=== PATIENT | male | born 1945 | race Caucasian/White ===

== ENCOUNTER 2019-11-30 07:32 | Outpatient (CLI) | payer MEDICARE, SELFPAY ==
--- NOTE | ~2019-11-30 | CT_ITS ---
EXAMINATION: CT chest wo con DATE: 11/30/2019 07:55 INDICATION: Adenocarcinoma right lower lobe. Follow-up. TECHNIQUE: Computed tomography (CT) of the chest was performed without intravenous contrast. The dose -length product was 310.74 mGy-cm. Automated exposure control and iterative reconstruction technique were employed. COMPARISON: CT dated 05/13/2017 and chest dated 12/30/2018 FINDINGS: There is asymmetry of the jugular veins which is chronic. There is atherosclerosis of the a anastasia and coronary arteries. Heart size is normal. There are calcified granulomas in the spleen. No th oracic lymphadenopathy. No significant pleural or pericardial effusion. There are surgical changes of partial right lower lung resection. Moderate emphysema. Calcified granuloma right lower lobe. There are reticulonodular densities of the right upper lobe anteriorly. There are calcified granulomas of t he left lung. Mildly elevated left diaphragm. Left lower lobe atelectasis. Small hiatal hernia. IMPRESSION: 1. No evidence for residual/recurrent malignancy. Surgical changes consistent with partial right lung resection. 2: Reticulonodular densities right upper lobe anteriorly, most likely infectious/inflammatory. 3: Moderate emphysema. Reviewed, dictated and finalized at location A. IMPRESSION: 1. No evidence for residual/recurrent malignancy. Surgical changes consistent w ith partial right lung resection. 2: Reticulonodular densities right upper lobe anteriorly, most likely infectiou s/inflammatory. 3: Moderate emphysema.
== END 2019-11-30 07:33 | disposition home or self-care (01) ==
LOC: CHSIMG 07:35
PROVIDERS: PCP Internal Medicine
DX: C34.31 Malignant neoplasm of lower lobe, right bronchus or lung (principal)
CPT/HCPCS: 71250

== ENCOUNTER 2020-02-01 07:25 | Outpatient (CLI) | payer MEDICARE, SELFPAY ==
[2020-02-01 07:40] LABS: Hematocrit 31.7 % (37.0-46.0); Hemoglobin 10.2 g/dL (12.4-15.3); Mean Corpuscular HGB Conc 32.2 g/dL (32.0-36.0); Mean Corpuscular Hemoglobin 23.9 pg (27.0-31.0); Mean Corpuscular Volume 74.4 fL (78.0-102.0); Mean Platelet Volume 9.6 fl (8.7-11.0); Platelet Count Result 281 K/mm3 (150-420); Red Blood Count 4.26 M/mm3 (4.70-6.10); Red Cell Distribution Width 20.4 % (11.6-14.4); White Blood Count 3.9 K/mm3 (4.8-10.8)
[2020-02-01 07:41] LABS: Add Urine Microscopic? NO; Appearance Urine Clear (Clear); Bilirubin Urine Negative (Negative); Blood Urine Negative (Negative); Color Urine Yellow (Yellow); Glucose Urine UA Negative (Negative); Ketones Urine Negative (Negative); Leukocyte Esterase Ur Negative (Negative); Nitrate Urine Negative (Negative); Protein Urine Negative (Negative); Specific Grav Ur <= 1.005 (1.010-1.020); Urobilinogen Urine 0.2 mg/dL (0.2-1.0)
[2020-02-01 08:00] LABS: Hemoglobin A1C 6.1 % (<5.7)
[2020-02-01 08:18] LABS: Band Neutrophils Percent 0 % (0-6); Basophils Percent Manual 0 % (0-1); Eosinophils Absolute Manual 0.07 K/mm3 (0.02-0.5); Eosinophils Percent Manual 2 % (1-6); Lymphocytes Percent Manual 18 % (18-44); Metamyelocytes Percent 1 %; Monocytes Absolute Manual 0.39 K/mm3 (0.1-0.90); Monocytes Percent Manual 10 % (3-9); Myelocytes Percent 0 %; Neutrophils Absolute Manual 2.69 K/mm3 (1.3-6.7); Neutrophils Percent Manual 69 % (46-73); Platelet Estimate Adequate (Adequate); Total Cells Counted 100
[2020-02-01 08:54] LABS: Alanine Aminotransferase 44 U/L (16-63); Albumin Level 3.6 g/dL (3.4-5.0); Alkaline Phosphatase 75 U/L (46-116); Anion Gap 12.4 mmol/L (7-16); Aspartate Amino Transferase 52 U/L (15-37); Bilirubin,Total 0.4 mg/dL (0.00-1.00); Blood Urea Nitrogen 4 mg/dL (7-18); Calcium 8.5 mg/dL (8.5-10.1); Carbon Dioxide 29 mmol/L (21-32); Chloride 98 mmol/L (98-108); Cholesterol 160 mg/dL (0-200); Estimated Glomerular Filt Rate > 60; Free T4 Free Thyroxine 1.23 ng/dL (0.76-1.46); Glucose 92 mg/dL (70-99); HDL Direct 61 mg/dL (40-60); LDL Cholesterol Calculated 76 mg/dL (<130); Osmolality Calculated 276 mOsm/kg (285-295); Potassium 4.4 mmol/L (3.5-5.1); Sodium 135 mmol/L (136-145); Thyroid Stimulating Hormone 0.26 uIU/mL (0.36-3.74); Total Protein 6.8 g/dL (6.4-8.2); Triglycerides 114 mg/dL (0-150)
[2020-02-01 09:12] LABS: Prostate Specific Antigen 4.1 ng/mL (< OR = 4.0)
== END 2020-02-01 07:26 | disposition home or self-care (01) ==
LOC: CHSLAB 07:27
PROVIDERS: PCP Internal Medicine; Visit Provider Internal Medicine
DX: E78.2 Mixed hyperlipidemia (principal); R73.01 Impaired fasting glucose; E03.9 Hypothyroidism, unspecified; I10 Essential (primary) hypertension; D45 Polycythemia vera; R97.20 Elevated prostate specific antigen [PSA]
CPT/HCPCS: 36415; 80053; 80061; 81003; 83036; 84153; 84439; 84443; 84481; 85025

== ENCOUNTER 2020-02-08 07:43 | Outpatient (CLI) | payer MEDICARE, SELFPAY ==
--- NOTE | ~2020-02-08 | US_ITS ---
US right upper quadrant DATE: 02/08/2020 08:27 INDICATION: Abnormal liver function test TECHNIQUE: Real-time imaging of the liver, pancreas, gallbladder areas COMPARISON: 08/10/2019 limited abdominal ultrasound FINDINGS: There is surface nodularity of the liver, consistent with previously suggested cirrhosis. N oted is an at least 4 cm hyperechoic hepatic mass, most consistent with hemangioma. No other hepatic space-occupying mass lesion is evident. There is normal hepatopedal flow in the portal vein. The gallbladder is surgically absent. The common bile duct measures 3.6 mm diameter, within normal ra nge. The pancreas is unremarkable. IMPRESSION: Cirrhosis Hepatic hemangioma Status post cholecystectomy No significant change since 08/10/2019 Reviewed, dictated and finalized at [facility]. Reviewed, dictated and finalized at location A.
== END 2020-02-08 07:44 | disposition home or self-care (01) ==
LOC: CHSIMG 07:44
PROVIDERS: PCP Internal Medicine; Visit Provider Internal Medicine Gastroenterology
DX: R94.5 Abnormal results of liver function studies (principal)
CPT/HCPCS: 76705

== ENCOUNTER 2020-02-22 08:00 | Outpatient (CLI) | payer MEDICARE, SELFPAY ==
--- NOTE | ~2020-02-22 | US_ITS ---
US arterial ankle brachial ind INDICATION: For for artery disease. TECHNIQUE: Segmental pressures and plethysmographic and Doppler waveforms of the brachial and lower e xtremity arteries were obtained. COMPARISON: None. FINDINGS: Right and left brachial artery pressures of 170 mm Hg and 170 mm Hg, respectively, are concordant (no rmal difference <= 30 mmHg). The right ankle-brachial index (SIA) is 1.18 (normal >= 0.9-1.0). The right great toe-brachial index (TBI) is 0.55 (normal >= 0.60). The left SIA is 1.18. The left TBI is 0.49. IMPRESSION: 1. Normal ankle-brachial indices. Mildly decreased toe brachial indices, consistent with peripheral a rterial disease. Reviewed, dictated and finalized at location A. IMPRESSION: 1. Normal ankle-brachial indices. Mildly decreased toe brachial indices, consis tent with peripheral arterial disease.
== END 2020-02-22 08:01 | disposition home or self-care (01) ==
PROVIDERS: PCP Internal Medicine; Visit Provider Internal Medicine
DX: I73.9 Peripheral vascular disease, unspecified (principal)
CPT/HCPCS: 93922

== ENCOUNTER 2020-02-29 07:27 | Outpatient (CLI) | payer MEDICARE, SELFPAY ==
[2020-02-29 07:37] LABS: Hematocrit 30.5 % (37.0-46.0); Hemoglobin 9.8 g/dL (12.4-15.3); Mean Corpuscular HGB Conc 32.1 g/dL (32.0-36.0); Mean Corpuscular Hemoglobin 24.1 pg (27.0-31.0); Mean Corpuscular Volume 75.1 fL (78.0-102.0); Mean Platelet Volume 8.9 fl (8.7-11.0); Platelet Count Result 201 K/mm3 (150-420); Red Blood Count 4.06 M/mm3 (4.70-6.10); Red Cell Distribution Width 21.1 % (11.6-14.4); White Blood Count 3.1 K/mm3 (4.8-10.8)
[2020-02-29 08:12] LABS: Band Neutrophils Percent 0 % (0-6); Eosinophils Absolute Manual 0.03 K/mm3 (0.02-0.5); Eosinophils Percent Manual 1 % (1-6); Lymphocytes Absolute Manual 0.46 K/mm3 (1.1-4.5); Lymphocytes Percent Manual 15 % (18-44); Monocytes Absolute Manual 0.18 K/mm3 (0.1-0.90); Monocytes Percent Manual 6 % (3-9); Neutrophils Absolute Manual 2.41 K/mm3 (1.3-6.7); Neutrophils Percent Manual 78 % (46-73); Platelet Estimate Adequate (Adequate); Total Cells Counted 100
[2020-03-01 16:55] LABS: Ferritin 60 ng/mL (26-388); Iron 93 ug/dL (65-175); Percent Iron Saturation 19 % (12-57)
== END 2020-02-29 07:28 | disposition home or self-care (01) ==
LOC: CHSLAB 07:29
PROVIDERS: PCP Internal Medicine
DX: D45 Polycythemia vera (principal); D50.9 Iron deficiency anemia, unspecified
CPT/HCPCS: 36415; 82728; 83540; 83550; 85025

== ENCOUNTER 2020-05-23 08:01 | Outpatient (CLI) | payer MEDICARE, SELFPAY ==
[2020-05-23 10:10] LABS: Free T3 1.93 pg/mL (2.18-3.98); Free T4 Free Thyroxine 1.16 ng/dL (0.76-1.46); Prostate Specific Antigen 5.1 ng/mL (< OR = 4.0)
== END 2020-05-23 08:02 | disposition home or self-care (01) ==
LOC: CHSLAB 08:03
PROVIDERS: PCP Internal Medicine; Visit Provider Internal Medicine
DX: E03.2 Hypothyroidism due to medicaments and other exogenous substances (principal); R97.20 Elevated prostate specific antigen [PSA]
CPT/HCPCS: 36415; 84153; 84439; 84443; 84481

== ENCOUNTER 2020-09-02 07:23 | Outpatient (CLI) | payer MEDICARE, SELFPAY ==
[2020-09-02 07:41] LABS: Hematocrit 31.7 % (37.0-46.0); Hemoglobin 10.3 g/dL (12.4-15.3); Mean Corpuscular HGB Conc 32.5 g/dL (32.0-36.0); Mean Corpuscular Hemoglobin 26.7 pg (27.0-31.0); Mean Corpuscular Volume 82.1 fL (78.0-102.0); Mean Platelet Volume 9.4 fl (8.7-11.0); Platelet Count Result 228 K/mm3 (150-420); Red Blood Count 3.86 M/mm3 (4.70-6.10); Red Cell Distribution Width 17.6 % (11.6-14.4); White Blood Count 2.7 K/mm3 (4.8-10.8)
[2020-09-02 07:43] LABS: Add Urine Microscopic? NO; Appearance Urine Clear (Clear); Bilirubin Urine Negative (Negative); Blood Urine Negative (Negative); Color Urine Yellow (Yellow); Glucose Urine UA Negative (Negative); Ketones Urine Negative (Negative); Leukocyte Esterase Ur Negative (Negative); Nitrate Urine Negative (Negative); Protein Urine Negative (Negative); Urobilinogen Urine 0.2 mg/dL (0.2-1.0); pH Urine 6.5 (5.0-8.0)
[2020-09-02 07:53] LABS: Hemoglobin A1C 5.6 % (<5.7)
[2020-09-02 08:16] LABS: Band Neutrophils Percent 0 % (0-6); Basophils Absolute Manual 0.02 K/mm3 (0-0.1); Basophils Percent Manual 1 % (0-1); Eosinophils Percent Manual 0 % (1-6); Lymphocytes Percent Manual 15 % (18-44); Monocytes Absolute Manual 0.32 K/mm3 (0.1-0.90); Monocytes Percent Manual 12 % (3-9); Neutrophils Absolute Manual 1.94 K/mm3 (1.3-6.7); Neutrophils Percent Manual 72 % (46-73); Platelet Estimate Adequate (Adequate); Total Cells Counted 100
[2020-09-02 09:44] LABS: Alanine Aminotransferase 25 U/L (16-63); Albumin Level 3.6 g/dL (3.4-5.0); Alkaline Phosphatase 82 U/L (46-116); Anion Gap 10 mmol/L (8-16); Aspartate Amino Transferase 25 U/L (15-37); Bilirubin,Total 0.4 mg/dL (0.00-1.00); Blood Urea Nitrogen 5 mg/dL (7-18); Calcium 8.5 mg/dL (8.5-10.1); Carbon Dioxide 28 mmol/L (21-32); Chloride 101 mmol/L (98-108); Cholesterol 150 mg/dL (0-200); Estimated Glomerular Filt Rate > 60; Free T3 2.42 pg/mL (2.18-3.98); Free T4 Free Thyroxine 1.21 ng/dL (0.76-1.46); Glucose 92 mg/dL (70-99); HDL Direct 64 mg/dL (40-60); LDL Cholesterol Calculated 63 mg/dL (<130); Osmolality Calculated 285 mOsm/kg (285-295); Potassium 4.4 mmol/L (3.5-5.1); Prostate Specific Antigen 7.6 ng/mL (< OR = 4.0); Sodium 139 mmol/L (136-145); Thyroid Stimulating Hormone 0.29 uIU/mL (0.36-3.74); Total Protein 6.7 g/dL (6.4-8.2); Triglycerides 113 mg/dL (0-150)
== END 2020-09-02 07:24 | disposition home or self-care (01) ==
LOC: CHSLAB 07:25
PROVIDERS: PCP Internal Medicine; Visit Provider Internal Medicine
DX: E03.2 Hypothyroidism due to medicaments and other exogenous substances (principal); D45 Polycythemia vera; R73.01 Impaired fasting glucose; I10 Essential (primary) hypertension; R97.20 Elevated prostate specific antigen [PSA]
CPT/HCPCS: 36415; 80053; 80061; 81003; 83036; 84153; 84439; 84443; 84481; 85025

== ENCOUNTER 2020-12-05 10:26 | Outpatient (CLI) | payer MEDICARE, SELFPAY ==
[2020-12-05 10:36] LABS: Basophils Absolute Auto 0.02 K/mm3 (0.00-0.10); Basophils Percent Auto 0.4 % (0.0-1.0); Eosinophils Absolute Auto 0.06 K/mm3 (0.02-0.50); Eosinophils Percent Auto 1.2 % (1.0-6.0); Hematocrit 33.3 % (37.0-46.0); Hemoglobin 10.8 g/dL (12.4-15.3); Immature Granulocyte Absolute 0.07 K/mm3 (0.00-0.00); Immature Granulocyte Percent A 1.4 % (0.0-0.0); Lymphocytes Absolute Auto 0.34 K/mm3 (1.10-4.50); Lymphocytes Percent Auto 6.7 % (18.0-42.0); Mean Corpuscular HGB Conc 32.4 g/dL (32.0-36.0); Mean Corpuscular Volume 89.3 fL (78.0-102.0); Mean Platelet Volume 9.1 fl (8.7-11.0); Monocytes Absolute Auto 0.59 K/mm3 (0.10-0.90); Monocytes Percent Auto 11.5 % (2.0-11.0); Neutrophils Percent Auto 78.8 % (50.0-70.0); Platelet Count Result 205 K/mm3 (150-420); Red Blood Count 3.73 M/mm3 (4.70-6.10); Red Cell Distribution Width 16.9 % (11.6-14.4); White Blood Count 5.1 K/mm3 (4.8-10.8)
[2020-12-05 10:51] LABS: INR 1.2; Partial Thromboplastin Time 27.6 SEC (23.90-30.70); Prothrombin Time 12.3 Seconds (9.50-12.10)
--- NOTE | 2020-12-05 10:55 | ECG_ITS ---
Measurements Intervals [place]rell Rate: 67 P: 22 WV: 148 QRS: -28 QRSD: 118 T: 4 QT: 445 QTc: 473 Interpretive Statements SINUS RHYTHM VENTRICULAR PREMATURE COMPLEX INCOMPLETE RIGHT BUNDLE BRANCH BLOCK MINIMAL Q WAVES- HIGH LATERAL LEADS BASELINE WANDER- II, III, AVF BORDERLINE ECG Electronically Signed On 12-05-2020 11:41:42 CDT by Kamaljit Persaud D.O.
[2020-12-05 11:41] LABS: Alanine Aminotransferase 84 U/L (16-63); Albumin Level 3.5 g/dL (3.4-5.0); Alkaline Phosphatase 114 U/L (46-116); Anion Gap 12 mmol/L (8-16); Aspartate Amino Transferase 85 U/L (15-37); Bilirubin,Total 0.5 mg/dL (0.00-1.00); Blood Urea Nitrogen 3 mg/dL (7-18); Calcium 8.9 mg/dL (8.5-10.1); Carbon Dioxide 26 mmol/L (21-32); Chloride 97 mmol/L (98-108); Estimated Glomerular Filt Rate > 60; Glucose 93 mg/dL (70-99); Osmolality Calculated 276 mOsm/kg (285-295); Potassium 3.7 mmol/L (3.5-5.1); Sodium 135 mmol/L (136-145); Total Protein 6.7 g/dL (6.4-8.2)
== END 2020-12-05 10:27 | disposition home or self-care (01) ==
LOC: CHSLAB 10:28
PROVIDERS: PCP Internal Medicine; Visit Provider Internal Medicine
DX: D45 Polycythemia vera (principal); I10 Essential (primary) hypertension; Z20.818 Contact with and (suspected) exposure to other bacterial communicable diseases; K74.60 Unspecified cirrhosis of liver
CPT/HCPCS: 36415; 80053; 85025; 85610; 85730; 93005

== ENCOUNTER 2021-01-27 07:19 | Outpatient (CLI) | payer MEDICARE, SELFPAY ==
[2021-01-27 07:33] LABS: Add Urine Microscopic? NO; Appearance Urine Clear (Clear); Bilirubin Urine Negative (Negative); Blood Urine Negative (Negative); Color Urine Light Yellow (Yellow); Glucose Urine UA Negative (Negative); Hematocrit 30.4 % (37.0-46.0); Ketones Urine Negative (Negative); Leukocyte Esterase Ur Negative (Negative); Mean Corpuscular HGB Conc 32.9 g/dL (32.0-36.0); Mean Corpuscular Hemoglobin 28.4 pg (27.0-31.0); Mean Corpuscular Volume 86.4 fL (78.0-102.0); Mean Platelet Volume 9.7 fl (8.7-11.0); Nitrate Urine Negative (Negative); Platelet Count Result 174 K/mm3 (150-420); Protein Urine Negative (Negative); Red Blood Count 3.52 M/mm3 (4.70-6.10); Red Cell Distribution Width 16.4 % (11.6-14.4); Specific Grav Ur <= 1.005 (1.010-1.020); Urobilinogen Urine 0.2 mg/dL (0.2-1.0); White Blood Count 2.9 K/mm3 (4.8-10.8)
[2021-01-27 07:42] LABS: Hemoglobin A1C 5.2 % (<5.7)
[2021-01-27 07:54] LABS: Band Neutrophils Percent 0 % (0-6); Eosinophils Absolute Manual 0.14 K/mm3 (0.02-0.5); Eosinophils Percent Manual 5 % (1-6); Lymphocytes Absolute Manual 0.37 K/mm3 (1.1-4.5); Lymphocytes Percent Manual 13 % (18-44); Monocytes Absolute Manual 0.17 K/mm3 (0.1-0.90); Monocytes Percent Manual 6 % (3-9); Neutrophils Percent Manual 76 % (46-73); Platelet Estimate Adequate (Adequate); Total Cells Counted 100
[2021-01-27 08:39] LABS: Alanine Aminotransferase 39 U/L (16-63); Albumin Level 3.5 g/dL (3.4-5.0); Alkaline Phosphatase 66 U/L (46-116); Anion Gap 11 mmol/L (8-16); Aspartate Amino Transferase 45 U/L (15-37); Bilirubin,Total 0.3 mg/dL (0.00-1.00); Blood Urea Nitrogen 5 mg/dL (7-18); Calcium 8.4 mg/dL (8.5-10.1); Carbon Dioxide 27 mmol/L (21-32); Chloride 100 mmol/L (98-108); Cholesterol 164 mg/dL (0-200); Estimated Glomerular Filt Rate > 60; Free T3 2.04 pg/mL (2.18-3.98); Free T4 Free Thyroxine 1.08 ng/dL (0.76-1.46); Glucose 92 mg/dL (70-99); HDL Direct 76 mg/dL (40-60); LDL Cholesterol Calculated 73 mg/dL (<130); Osmolality Calculated 283 mOsm/kg (285-295); Potassium 4.3 mmol/L (3.5-5.1); Sodium 138 mmol/L (136-145); Thyroid Stimulating Hormone 0.66 uIU/mL (0.36-3.74); Total Protein 6.4 g/dL (6.4-8.2); Triglycerides 73 mg/dL (0-150); Vitamin B12 987 pg/mL (193-986)
== END 2021-01-27 07:20 | disposition home or self-care (01) ==
LOC: CHSLAB 07:21
PROVIDERS: PCP Internal Medicine; Visit Provider Internal Medicine
DX: E03.2 Hypothyroidism due to medicaments and other exogenous substances (principal); I10 Essential (primary) hypertension; D45 Polycythemia vera; R73.01 Impaired fasting glucose; K74.5 Biliary cirrhosis, unspecified; E53.8 Deficiency of other specified B group vitamins
CPT/HCPCS: 36415; 80053; 80061; 81003; 82607; 83036; 84439; 84443; 84481; 85025

== ENCOUNTER 2021-04-07 07:44 | Outpatient (CLI) | payer MEDICARE, SELFPAY ==
[2021-04-07 07:57] LABS: Hematocrit 34.1 % (37.0-46.0); Hemoglobin 11.4 g/dL (12.4-15.3); Mean Corpuscular HGB Conc 33.4 g/dL (32.0-36.0); Mean Corpuscular Hemoglobin 29.6 pg (27.0-31.0); Mean Corpuscular Volume 88.6 fL (78.0-102.0); Mean Platelet Volume 9.1 fl (8.7-11.0); Platelet Count Result 182 K/mm3 (150-420); Red Blood Count 3.85 M/mm3 (4.70-6.10); Red Cell Distribution Width 16.8 % (11.6-14.4); White Blood Count 2.7 K/mm3 (4.8-10.8)
[2021-04-07 08:36] LABS: Band Neutrophils Percent 0 % (0-6); Eosinophils Absolute Manual 0.05 K/mm3 (0.02-0.5); Eosinophils Percent Manual 2 % (1-6); Lymphocytes Absolute Manual 0.16 K/mm3 (1.1-4.5); Lymphocytes Percent Manual 6 % (18-44); Monocytes Absolute Manual 0.35 K/mm3 (0.1-0.90); Monocytes Percent Manual 13 % (3-9); Neutrophils Absolute Manual 2.13 K/mm3 (1.3-6.7); Neutrophils Percent Manual 79 % (46-73); Platelet Estimate Adequate (Adequate); Total Cells Counted 100
== END 2021-04-07 07:45 | disposition home or self-care (01) ==
PROVIDERS: PCP Internal Medicine
DX: D45 Polycythemia vera (principal)
CPT/HCPCS: 36415; 85025; 85060

== ENCOUNTER 2021-04-10 07:25 | Outpatient (CLI) | payer MEDICARE, SELFPAY ==
--- NOTE | ~2021-04-10 | US_ITS ---
EXAMINATION: US abdomen limited DATE: 04/10/2021 08:02 INDICATION: Cirrhosis of the liver without ascites TECHNIQUE: Multiple grayscale and Doppler ultrasound images of the abdomen were obtained. COMPARISON: 02/08/2020; CT, 11/07/2016 FINDINGS: Bowel gas obscures visualization of the pancreas. The visualized portions of the pancreas a re unremarkable. The liver demonstrates increased echogenicity, heterogenous echotexture, and decreas ed through transmission. A stable hyperechoic mass in the right hepatic lobe has been previously case acterized as a hemangioma. There is a questionable 2.4 x 2.2 x 2.0 cm hypoechoic mass in the left hep atic lobe. There is mild nodularity of the liver surface. Normal hepatopetal flow in the main portal vein. The gallbladder is surgically absent. The normal common bile duct measures 3 mm. IMPRESSION: 1. Questionable hypoechoic mass of the left hepatic lobe. Further evaluation by CT or MRI without and with contrast is recommended. Reviewed, dictated and finalized at location A.
== END 2021-04-10 07:26 | disposition home or self-care (01) ==
LOC: CHSIMG 07:27
PROVIDERS: PCP Internal Medicine; Visit Provider Internal Medicine Gastroenterology
DX: K70.30 Alcoholic cirrhosis of liver without ascites (principal)
CPT/HCPCS: 76705

== ENCOUNTER 2021-07-04 15:50 | Outpatient (CLI) | payer MEDICARE, SELFPAY ==
[2021-07-04 16:53] LABS: Influenza A QL RT-PCR Negative (Negative); Influenza B QL RT-PCR Negative (Negative); SARS-CoV-2 RNA PCR Negative (Negative)
== END 2021-07-04 15:51 | disposition home or self-care (01) ==
LOC: CHSLAB 15:51
PROVIDERS: PCP Internal Medicine; Visit Provider Internal Medicine
DX: J06.9 Acute upper respiratory infection, unspecified (principal); Z20.822 Contact with and (suspected) exposure to COVID-19
CPT/HCPCS: 87502; C9803; U0003; U0005

== ENCOUNTER 2021-07-06 10:49 | Outpatient (CLI) | payer MEDICARE, SELFPAY ==
--- NOTE | ~2021-07-06 | XR_ITS ---
EXAMINATION: XR chest 2V DATE: 07/06/2021 11:14 INDICATION: Cough and wheezing. TECHNIQUE: frontal and lateral views of the chest were obtained. COMPARISON: Chest radiograph dated 12/30/[address] dated 11/30/2019 FINDINGS: Chronic mild elevation of left hemidiaphragm. Increased parenchymal interstitial opacities with bronc hial wall thickening in the bilateral mid and lower lung zones. No pleural effusion or pneumothorax. The cardiomediastinal silhouette is normal. Chronic mild anterior wedging at T6. More recent T5 compr ession fracture with 20% anterior vertebral body height loss which is new since CT dated 11/30/2019. Evans rgical clips at the base of the neck which could be related to prior thyroidectomy. IMPRESSION: 1. Opacities with bronchial wall thickening in the bilateral mid and lower lung zones which could rep resent mild pulmonary edema, bronchitis/pneumonia or reactive airway disease/asthma. 2. Chronic elevation of left hemidiaphragm. 3. Age-indeterminate T5 compression fracture new since 11/30/2019 . Reviewed, dictated and finalized at location B. SURE TESTER IMPRESSION: 1. Opacities with bronchial wall thickening in the bilateral mid and lower lung zones which could represent mild pulmonary edema, bronchitis/pneumonia or reac tive airway disease/asthma. 2. Chronic elevation of left hemidiaphragm. 3. Age-indeterminate T5 compression fracture new since 11/30/2019 .
[2021-07-06 11:03] LABS: Hematocrit 37.1 % (37.0-46.0); Hemoglobin 11.7 g/dL (12.4-15.3); Mean Corpuscular HGB Conc 31.5 g/dL (32.0-36.0); Mean Corpuscular Hemoglobin 26.7 pg (27.0-31.0); Mean Corpuscular Volume 84.5 fL (78.0-102.0); Mean Platelet Volume 9.7 fl (8.7-11.0); Platelet Count Result 245 K/mm3 (150-420); Red Blood Count 4.39 M/mm3 (4.70-6.10); White Blood Count 6.6 K/mm3 (4.8-10.8)
[2021-07-06 11:18] LABS: Alanine Aminotransferase 21 U/L (16-63); Albumin Level 3.1 g/dL (3.4-5.0); Alkaline Phosphatase 103 U/L (46-116); Anion Gap 10 mmol/L (8-16); Aspartate Amino Transferase 23 U/L (15-37); Bilirubin,Total 0.9 mg/dL (0.00-1.00); Blood Urea Nitrogen 10 mg/dL (7-18); Calcium 8.7 mg/dL (8.5-10.1); Carbon Dioxide 30 mmol/L (21-32); Chloride 98 mmol/L (98-108); Estimated Glomerular Filt Rate > 60; Glucose 117 mg/dL (70-99); Osmolality Calculated 286 mOsm/kg (285-295); Potassium 3.1 mmol/L (3.5-5.1); Sodium 138 mmol/L (136-145)
[2021-07-06 11:24] LABS: Band Neutrophils Percent 3 % (0-6); Eosinophils Absolute Manual 0.19 K/mm3 (0.02-0.5); Eosinophils Percent Manual 3 % (1-6); Lymphocytes Absolute Manual 0.39 K/mm3 (1.1-4.5); Lymphocytes Percent Manual 6 % (18-44); Metamyelocytes Percent 1 %; Monocytes Absolute Manual 0.46 K/mm3 (0.1-0.90); Monocytes Percent Manual 7 % (3-9); Myelocytes Percent 1 %; Neutrophils Absolute Manual 5.41 K/mm3 (1.3-6.7); Neutrophils Percent Manual 79 % (46-73); Platelet Estimate Adequate (Adequate); Total Cells Counted 100
== END 2021-07-06 10:50 | disposition home or self-care (01) ==
LOC: CHSLAB 10:50
PROVIDERS: PCP Internal Medicine; Visit Provider Internal Medicine
DX: R05.9 Cough, unspecified (principal); R06.2 Wheezing
CPT/HCPCS: 36415; 71046; 80053; 85025

== ENCOUNTER 2021-07-13 09:31 | Outpatient (CLI) | payer MEDICARE, SELFPAY ==
[2021-07-13 10:25] LABS: Anion Gap 7 mmol/L (8-16); Blood Urea Nitrogen 9 mg/dL (7-18); Calcium 9.1 mg/dL (8.5-10.1); Carbon Dioxide 29 mmol/L (21-32); Chloride 101 mmol/L (98-108); Estimated Glomerular Filt Rate > 60; Glucose 100 mg/dL (70-99); Osmolality Calculated 282 mOsm/kg (285-295); Potassium 4.5 mmol/L (3.5-5.1); Sodium 137 mmol/L (136-145)
== END 2021-07-13 09:32 | disposition home or self-care (01) ==
LOC: CHSLAB 09:33
PROVIDERS: PCP Internal Medicine; Visit Provider Internal Medicine
DX: E87.6 Hypokalemia (principal)
CPT/HCPCS: 36415; 80048

== ENCOUNTER 2021-07-18 08:34 | Outpatient (CLI) | payer MEDICARE, SELFPAY ==
--- NOTE | ~2021-07-18 | XR_ITS ---
XR chest 2V 07/18/2021 08:50 Indication: Pneumonia follow-up. History of lung cancer. Procedure: 2 view chest Comparison: Comparison to multiple prior studies sequentially, with oldest reviewed study dated 12/08. Findings: There is mild elevation of the left diaphragm. There are calcified granulomas bilaterally. Heart size is normal. No suspicious pulmonary nodules or masses. No acute osseous abnormality. Impression: 1: No acute cardiopulmonary disease. Reviewed, dictated and finalized at location A. ROL AREA OPERATOR Impression: 1: No acute cardiopulmonary disease.
== END 2021-07-18 08:35 | disposition home or self-care (01) ==
LOC: CHSIMG 08:36
PROVIDERS: PCP Internal Medicine; Visit Provider Internal Medicine
DX: Z51.89 Encounter for other specified aftercare (principal); J18.9 Pneumonia, unspecified organism
CPT/HCPCS: 71046

== ENCOUNTER 2021-08-07 08:06 | Outpatient (CLI) | payer MEDICARE, SELFPAY ==
[2021-08-07 08:16] LABS: Hematocrit 36.3 % (37.0-46.0); Hemoglobin 11.4 g/dL (12.4-15.3); Mean Corpuscular HGB Conc 31.4 g/dL (32.0-36.0); Mean Corpuscular Hemoglobin 26.2 pg (27.0-31.0); Mean Corpuscular Volume 83.4 fL (78.0-102.0); Mean Platelet Volume 10.2 fl (8.7-11.0); Platelet Count Result 194 K/mm3 (150-420); Red Blood Count 4.35 M/mm3 (4.70-6.10); Red Cell Distribution Width 17.5 % (11.6-14.4); White Blood Count 1.7 K/mm3 (4.8-10.8)
[2021-08-07 08:23] LABS: Add Urine Microscopic? YES; Appearance Urine Clear (Clear); Bilirubin Urine Negative (Negative); Blood Urine Negative (Negative); Color Urine Yellow (Yellow); Glucose Urine UA Negative (Negative); Ketones Urine Trace (Negative); Leukocyte Esterase Ur Negative (Negative); Nitrate Urine Negative (Negative); Protein Urine Negative (Negative); Specific Grav Ur 1.015 (1.010-1.020); Urobilinogen Urine 0.2 mg/dL (0.2-1.0)
[2021-08-07 08:34] LABS: RBC Urine None seen /hpf (0-2)
[2021-08-07 08:35] LABS: Bacteria Urine None seen /hpf; WBC Urine None seen /hpf (0-3)
[2021-08-07 08:50] LABS: Band Neutrophils Percent 2 % (0-6); Lymphocytes Absolute Manual 0.17 K/mm3 (1.1-4.5); Lymphocytes Percent Manual 10 % (18-44); Monocytes Absolute Manual 0.11 K/mm3 (0.1-0.90); Monocytes Percent Manual 7 % (3-9); Neutrophils Absolute Manual 1.41 K/mm3 (1.3-6.7); Neutrophils Percent Manual 81 % (46-73); Total Cells Counted 100
[2021-08-07 08:51] LABS: Platelet Estimate Adequate (Adequate)
[2021-08-07 10:01] LABS: Alanine Aminotransferase 24 U/L (16-63); Albumin Level 3.5 g/dL (3.4-5.0); Alkaline Phosphatase 81 U/L (46-116); Anion Gap 14 mmol/L (8-16); Aspartate Amino Transferase 34 U/L (15-37); Bilirubin,Total 0.6 mg/dL (0.00-1.00); Blood Urea Nitrogen 10 mg/dL (7-18); Calcium 8.4 mg/dL (8.5-10.1); Carbon Dioxide 24 mmol/L (21-32); Chloride 99 mmol/L (98-108); Cholesterol 133 mg/dL (0-200); Creatine Kinase 41 U/L (39-308); Estimated Glomerular Filt Rate > 60; Ferritin 90 ng/mL (26-388); Free T4 Free Thyroxine 1.73 ng/dL (0.76-1.46); Glucose 99 mg/dL (70-99); HDL Direct 28 mg/dL (40-60); Iron 37 ug/dL (65-175); LDL Cholesterol Calculated 88 mg/dL (<130); Osmolality Calculated 283 mOsm/kg (285-295); Percent Iron Saturation 11 % (12-57); Potassium 3.8 mmol/L (3.5-5.1); Sodium 137 mmol/L (136-145); Thyroid Stimulating Hormone 0.09 uIU/mL (0.36-3.74); Total Protein 6.4 g/dL (6.4-8.2); Triglycerides 84 mg/dL (0-150)
[2021-08-07 10:06] LABS: Vitamin B12 > 2000 pg/mL (193-986)
== END 2021-08-07 08:07 | disposition home or self-care (01) ==
LOC: CHSLAB 08:08
PROVIDERS: PCP Internal Medicine; Visit Provider Internal Medicine
DX: E03.2 Hypothyroidism due to medicaments and other exogenous substances (principal); R73.01 Impaired fasting glucose; E03.4 Atrophy of thyroid (acquired); K74.5 Biliary cirrhosis, unspecified; E53.8 Deficiency of other specified B group vitamins
CPT/HCPCS: 36415; 80053; 80061; 81001; 82550; 82607; 82728; 83540; 83550; 84439; 84443; 85025

== ENCOUNTER 2021-09-08 07:31 | Outpatient (CLI) | payer MEDICARE, SELFPAY ==
[2021-09-08 07:53] LABS: Basophils Absolute Auto 0.01 K/mm3 (0.00-0.10); Basophils Percent Auto 0.2 % (0.0-1.0); Eosinophils Absolute Auto 0.07 K/mm3 (0.02-0.50); Eosinophils Percent Auto 1.4 % (1.0-6.0); Hemoglobin 10.1 g/dL (12.4-15.3); Immature Granulocyte Absolute 0.07 K/mm3 (0.00-0.00); Immature Granulocyte Percent A 1.4 % (0.0-0.0); Lymphocytes Absolute Auto 0.41 K/mm3 (1.10-4.50); Lymphocytes Percent Auto 8.2 % (18.0-42.0); Mean Corpuscular HGB Conc 30.6 g/dL (32.0-36.0); Mean Corpuscular Hemoglobin 25.8 pg (27.0-31.0); Mean Corpuscular Volume 84.2 fL (78.0-102.0); Mean Platelet Volume 10.6 fl (8.7-11.0); Monocytes Absolute Auto 0.44 K/mm3 (0.10-0.90); Monocytes Percent Auto 8.9 % (2.0-11.0); Neutrophils Percent Auto 79.9 % (50.0-70.0); Platelet Count Result 307 K/mm3 (150-420); Red Blood Count 3.92 M/mm3 (4.70-6.10); Red Cell Distribution Width 18.5 % (11.6-14.4)
== END 2021-09-08 07:32 | disposition home or self-care (01) ==
LOC: CHSLAB 07:35
PROVIDERS: PCP Internal Medicine
DX: D45 Polycythemia vera (principal)
CPT/HCPCS: 36415; 85025

== ENCOUNTER 2021-10-13 07:26 | Outpatient (CLI) | payer MEDICARE, SELFPAY ==
[2021-10-13 07:41] LABS: Basophils Absolute Auto 0.03 K/mm3 (0.00-0.10); Basophils Percent Auto 0.4 % (0.0-1.0); Eosinophils Absolute Auto 0.17 K/mm3 (0.02-0.50); Eosinophils Percent Auto 2.3 % (1.0-6.0); Hematocrit 33.9 % (37.0-46.0); Hemoglobin 10.3 g/dL (12.4-15.3); Immature Granulocyte Absolute 0.04 K/mm3 (0.00-0.00); Immature Granulocyte Percent A 0.5 % (0.0-0.0); Lymphocytes Absolute Auto 0.38 K/mm3 (1.10-4.50); Lymphocytes Percent Auto 5.1 % (18.0-42.0); Mean Corpuscular HGB Conc 30.4 g/dL (32.0-36.0); Mean Corpuscular Hemoglobin 24.9 pg (27.0-31.0); Mean Corpuscular Volume 82.1 fL (78.0-102.0); Mean Platelet Volume 10.3 fl (8.7-11.0); Monocytes Absolute Auto 0.62 K/mm3 (0.10-0.90); Monocytes Percent Auto 8.4 % (2.0-11.0); Neutrophils Absolute Auto 6.2 K/mm3 (1.7-7.2); Neutrophils Percent Auto 83.3 % (50.0-70.0); Platelet Count Result 424 K/mm3 (150-420); Red Blood Count 4.13 M/mm3 (4.70-6.10); Red Cell Distribution Width 15.9 % (11.6-14.4); White Blood Count 7.4 K/mm3 (4.8-10.8)
[2021-10-13 08:19] LABS: Thyroid Stimulating Hormone 1.01 uIU/mL (0.36-3.74)
[2021-10-13 08:35] LABS: Free T4 Free Thyroxine 1.17 ng/dL (0.76-1.46)
== END 2021-10-13 07:27 | disposition home or self-care (01) ==
LOC: CHSLAB 07:27
PROVIDERS: PCP Internal Medicine; Visit Provider Internal Medicine
DX: E03.4 Atrophy of thyroid (acquired) (principal); D45 Polycythemia vera
CPT/HCPCS: 36415; 84439; 84443; 84481; 85025

== ENCOUNTER 2021-10-30 07:16 | Outpatient (CLI) | payer MEDICARE, SELFPAY ==
--- NOTE | ~2021-10-30 | US_ITS ---
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 TECHNIQUE: Multiple grayscale and Doppler images of the abdomen right upper quadrant were obtained (b y a technologist who performed the scan) and subsequently reviewed. Comparison is made to prior exami nation from 04/10/2021. FINDINGS: The pancreatic head and body are normal in appearance. The pancreatic tail is not visualized. The l iver has normal echogenicity and with mild undulating contour. There is heterogeneous in liver mass measuring 4.0 x 2.7 x 4.5 cm, echogenic regions within causing some shadowing. The appearance, size u nchanged compared to prior study, and has been previously characterized as hemangioma, benign histolo gy. On prior study there was questionable hypoechoic mass in the left liver lobe, region not specific ally identified on this exam. There is no evidence of intrahepatic biliary duct dilation. Portal ve nous flow was seen in the hepatopedal, normal direction and has normal Doppler waveform. No right-si ded hydronephrosis. Common bile duct measures 4 mm, which is normal. The gallbladder fossa is unremarkable. IMPRESSION: 1. Stable hyperechoic liver mass, likely benign. 2. Mild liver surface undulations, possible cirrhosis. Reviewed, dictated and finalized at location A.
== END 2021-10-30 07:17 | disposition home or self-care (01) ==
LOC: CHSIMG 07:18
PROVIDERS: PCP Internal Medicine; Visit Provider Internal Medicine Gastroenterology
DX: K70.30 Alcoholic cirrhosis of liver without ascites (principal)
CPT/HCPCS: 76705

== ENCOUNTER 2022-02-13 07:52 | Outpatient (CLI) | payer MEDICARE, SELFPAY ==
[2022-02-13 08:09] LABS: Hematocrit 33.3 % (37.0-46.0); Hemoglobin 10.1 g/dL (12.4-15.3); Mean Corpuscular HGB Conc 30.3 g/dL (32.0-36.0); Mean Corpuscular Hemoglobin 22.7 pg (27.0-31.0); Mean Corpuscular Volume 74.8 fL (78.0-102.0); Mean Platelet Volume 8.9 fl (8.7-11.0); Platelet Count Result 337 K/mm3 (150-420); Red Blood Count 4.45 M/mm3 (4.70-6.10); Red Cell Distribution Width 21.2 % (11.6-14.4); White Blood Count 3.9 K/mm3 (4.8-10.8)
[2022-02-13 08:22] LABS: Hemoglobin A1C 5.6 % (<5.7)
[2022-02-13 08:56] LABS: Band Neutrophils Percent 0 % (0-6); Eosinophils Absolute Manual 0.11 K/mm3 (0.02-0.5); Eosinophils Percent Manual 3 % (1-6); Lymphocytes Percent Manual 13 % (18-44); Monocytes Absolute Manual 0.31 K/mm3 (0.1-0.90); Monocytes Percent Manual 8 % (3-9); Myelocytes Percent 1 %; Neutrophils Absolute Manual 2.92 K/mm3 (1.3-6.7); Neutrophils Percent Manual 75 % (46-73); Platelet Estimate Adequate (Adequate); Total Cells Counted 100
[2022-02-13 09:20] LABS: Alanine Aminotransferase 33 U/L (16-63); Albumin Level 3.6 g/dL (3.4-5.0); Alkaline Phosphatase 81 U/L (46-116); Anion Gap 9 mmol/L (8-16); Aspartate Amino Transferase 34 U/L (15-37); Bilirubin,Total 0.4 mg/dL (0.00-1.00); Blood Urea Nitrogen 5 mg/dL (7-18); Calcium 8.5 mg/dL (8.5-10.1); Carbon Dioxide 25 mmol/L (21-32); Chloride 96 mmol/L (98-108); Cholesterol 134 mg/dL (0-200); Creatine Kinase 262 U/L (39-308); Estimated Glomerular Filt Rate > 60; Ferritin 35 ng/mL (26-388); Free T4 Free Thyroxine 1.01 ng/dL (0.76-1.46); Glucose 103 mg/dL (70-99); HDL Direct 55 mg/dL (40-60); Iron 37 ug/dL (65-175); LDL Cholesterol Calculated 49 mg/dL (<130); Osmolality Calculated 267 mOsm/kg (285-295); Potassium 4.4 mmol/L (3.5-5.1); Prostate Specific Antigen 8.3 ng/mL (< OR = 4.0); Sodium 130 mmol/L (136-145); Thyroid Stimulating Hormone 2.49 uIU/mL (0.36-3.74); Total Protein 6.5 g/dL (6.4-8.2); Triglycerides 148 mg/dL (0-150); Vitamin B12 1404 pg/mL (193-986)
[2022-02-13 10:39] LABS: Add Urine Microscopic? NO; Appearance Urine Clear (Clear); Bilirubin Urine Negative (Negative); Blood Urine Negative (Negative); Color Urine Light Yellow (Yellow); Glucose Urine UA Negative (Negative); Ketones Urine Negative (Negative); Leukocyte Esterase Ur Negative (Negative); Nitrate Urine Negative (Negative); Protein Urine Negative (Negative); Specific Grav Ur <= 1.005 (1.010-1.020); Urobilinogen Urine 0.2 mg/dL (0.2-1.0)
[2022-02-17 20:18] LABS: Vitamin D 25 Hydroxy 44 ng/mL (30-100)
== END 2022-02-13 07:53 | disposition home or self-care (01) ==
LOC: CHSLAB 07:55
PROVIDERS: PCP Internal Medicine; Visit Provider Internal Medicine
DX: D45 Polycythemia vera (principal); R73.01 Impaired fasting glucose; I10 Essential (primary) hypertension; E53.8 Deficiency of other specified B group vitamins; I70.203 Unspecified atherosclerosis of native arteries of extremities, bilateral legs; D70.9 Neutropenia, unspecified; C61 Malignant neoplasm of prostate; K74.60 Unspecified cirrhosis of liver
CPT/HCPCS: 36415; 80053; 80061; 81003; 82306; 82550; 82607; 82728; 83036; 83540; 84153; 84439; 84443; 85025

== ENCOUNTER 2022-04-02 07:28 | Outpatient (CLI) | payer MEDICARE, SELFPAY ==
[2022-04-02 07:51] LABS: Anion Gap 8 mmol/L (8-16); Blood Urea Nitrogen 7 mg/dL (7-18); Calcium 8.7 mg/dL (8.5-10.1); Carbon Dioxide 27 mmol/L (21-32); Chloride 100 mmol/L (98-108); Estimated Glomerular Filt Rate > 60; Glucose 128 mg/dL (70-99); Osmolality Calculated 280 mOsm/kg (285-295); Potassium 3.9 mmol/L (3.5-5.1); Sodium 135 mmol/L (136-145)
== END 2022-04-02 07:29 | disposition home or self-care (01) ==
LOC: CHSLAB 07:30
PROVIDERS: PCP Internal Medicine; Visit Provider Internal Medicine
DX: E87.1 Hypo-osmolality and hyponatremia (principal)
CPT/HCPCS: 36415; 80048

== ENCOUNTER 2022-05-01 07:49 | Outpatient (CLI) | payer MEDICARE, SELFPAY ==
--- NOTE | ~2022-05-01 | US_ITS ---
US abdomen limited INDICATION: Cirrhosis. PROCEDURE: Realtime right upper abdominal ultrasound. COMPARISON: Comparison to multiple prior studies sequentially, with oldest reviewed study dated 04/10. FINDINGS: The pancreas is normal without focal mass or pancreatic ductal dilation. There is a hypere choic lesion of the liver measuring 4.4 x 2.9 x 2.7 cm compared with 4.5 x 4 x 2.7 cm on prior examin ation and 5 x 3.4 x 4.2 cm on 04/10/2021. There is normal directional flow in the portal vein. Gallbladder is surgically absent. Common bile duct measures 4 mm. IMPRESSION: 1: Hyperechoic liver mass which is stable or slightly decreased in size compared with prior examinati ons, likely benign. Reviewed, dictated and finalized at location A. IMPRESSION: 1: Hyperechoic liver mass which is stable or slightly decreased in size compare d with prior examinations, likely benign.
== END 2022-05-01 07:50 | disposition home or self-care (01) ==
LOC: CHSIMG 07:49
PROVIDERS: PCP Internal Medicine; Visit Provider Internal Medicine Gastroenterology
DX: K70.30 Alcoholic cirrhosis of liver without ascites (principal)
CPT/HCPCS: 76705

== ENCOUNTER 2022-05-28 17:02 | Outpatient (CLI) | payer MEDICARE, SELFPAY ==
[2022-05-28 17:14] LABS: Basophils Absolute Auto 0.03 K/mm3 (0.00-0.10); Basophils Percent Auto 0.5 % (0.0-1.0); Eosinophils Absolute Auto 0.07 K/mm3 (0.02-0.50); Eosinophils Percent Auto 1.1 % (1.0-6.0); Hematocrit 33.3 % (37.0-46.0); Hemoglobin 10.7 g/dL (12.4-15.3); Immature Granulocyte Absolute 0.07 K/mm3 (0.00-0.00); Immature Granulocyte Percent A 1.1 % (0.0-0.0); Lymphocytes Absolute Auto 0.37 K/mm3 (1.10-4.50); Lymphocytes Percent Auto 5.9 % (18.0-42.0); Mean Corpuscular HGB Conc 32.1 g/dL (32.0-36.0); Mean Corpuscular Hemoglobin 27.2 pg (27.0-31.0); Mean Corpuscular Volume 84.5 fL (78.0-102.0); Mean Platelet Volume 9.4 fl (8.7-11.0); Monocytes Absolute Auto 0.67 K/mm3 (0.10-0.90); Monocytes Percent Auto 10.7 % (2.0-11.0); Neutrophils Absolute Auto 5.1 K/mm3 (1.7-7.2); Neutrophils Percent Auto 80.7 % (50.0-70.0); Platelet Count Result 253 K/mm3 (150-420); Red Blood Count 3.94 M/mm3 (4.70-6.10); White Blood Count 6.3 K/mm3 (4.8-10.8)
[2022-05-28 18:04] LABS: Alanine Aminotransferase 32 U/L (16-63); Albumin Level 3.7 g/dL (3.4-5.0); Alkaline Phosphatase 108 U/L (46-116); Anion Gap 10 mmol/L (8-16); Aspartate Amino Transferase 35 U/L (15-37); Bilirubin,Total 0.6 mg/dL (0.00-1.00); Blood Urea Nitrogen 6 mg/dL (7-18); Calcium 8.7 mg/dL (8.5-10.1); Carbon Dioxide 27 mmol/L (21-32); Chloride 98 mmol/L (98-108); Estimated Glomerular Filt Rate > 60; Free T3 1.66 pg/mL (2.18-3.98); Free T4 Free Thyroxine 1.12 ng/dL (0.76-1.46); Glucose 71 mg/dL (70-99); Magnesium 1.9 mg/dL (1.8-2.4); Osmolality Calculated 275 mOsm/kg (285-295); Sodium 135 mmol/L (136-145); Thyroid Stimulating Hormone 3.73 uIU/mL (0.36-3.74); Total Protein 6.9 g/dL (6.4-8.2)
== END 2022-05-28 17:03 | disposition home or self-care (01) ==
LOC: CHSLAB 17:03
PROVIDERS: PCP Internal Medicine; Visit Provider Internal Medicine
DX: K74.5 Biliary cirrhosis, unspecified (principal); E03.2 Hypothyroidism due to medicaments and other exogenous substances; E87.1 Hypo-osmolality and hyponatremia
CPT/HCPCS: 36415; 80053; 83735; 84439; 84443; 84481; 85025

== ENCOUNTER 2022-05-31 07:15 | Outpatient (CLI) | payer MEDICARE, SELFPAY ==
--- NOTE | ~2022-05-31 | CT_ITS ---
EXAMINATION: CT abdomen pelvis w con DATE: 05/31/2022 07:55 INDICATION: Change in bowel habits, watery stool for one month TECHNIQUE: Computed tomography (CT) of the abdomen and pelvis was performed with 100 CC Omnipaque 350 intravenous contrast. Automated exposure control and iterative reconstruction technique were employe d. Exam dose: 497.43 mGy-cm total exam DLP. COMPARISON: 04/2022 Limited abdominal ultrasound examination FINDINGS: There are prominent emphysematous changes of the lungs. There is a suture line in the poste romedial right lower lung from previous lung resection. Bilateral calcified pulmonary granulomas and calcified right hilar and subcarinal nodes, consistent with old granulomatous disease. Small focal tree-in-bud infiltrate at the lower aspect of anterior segment of right upper lobe. Borderline heart size. There are prominent coronary artery calcifications. No pericardial or pleural effusion. Up to approximately 3.1 x 4.8 cm irregular hypoattenuating lesion of the lower aspect of the right he patic lobe with interrupted peripheral puddling of contrast material, corresponding to hyperechoic so nographic lesion, most likely a benign hemangioma. No other hepatic space-occupying mass lesion. Status post cholecystectomy. No bile duct or pancreatic duct dilatation. No pancreatic mass lesion or calcification. Splenomegaly. Multiple calcified splenic granulomas. No splenic mass lesion. Morphology of the adrenal glands. No suspicious renal mass lesion. Prominently calcified 7.5 mm exophytic lesion of the left kidney, co nsistent with benign briefly calcified probable cyst. No urinary tract calculus or hydroureteronephro sis. There is prostate enlargement and calcification. There is uniform diffuse moderately prominent thicke stacy of the urinary bladder wall. There is extensive atherosclerotic calcification of the abdominal aorta and prominent calcification o f the origin of the superior mesenteric and renal arteries, inferior mesenteric artery. No abdominal aortic aneurysm. There is very prominent atherosclerotic calcification of the iliac and femoral arter ies. No intraperitoneal or retroperitoneal or pelvic mass lesion or adenopathy or ascites. Small sliding hiatal hernia. Normal appendix. No bowel obstruction, bowel wall thickening, pneumatosi s or intraperitoneal free air. Degenerative changes of the thoracic and lumbar spine including moderately severe degenerative disc d isease and minimal retrolisthesis at L4-5 and L5-S1. Bilateral hip osteoarthritis. No suspicious oste olytic or osteoblastic lesions. IMPRESSION: Extensive atherosclerosis in the coronary arteries, abdominal aorta, superior mesenteric , inferior mesenteric, renal, iliac and femoral arteries Borderline heart size COPD Old granulomatous disease Splenomegaly Status post cholecystectomy Right hepatic hemangioma Prostate enlargement and calcification Reviewed, dictated and finalized at [facility]. Reviewed, dictated and finalized at location A. IMPRESSION: Extensive atherosclerosis in the coronary arteries, abdominal aort a, superior mesenteric, inferior mesenteric, renal, iliac and femoral arteries Borderline heart size COPD Old granulomatous disease Splenomegaly Status post cholecystectomy Right hepatic hemangioma Prostate enlargement and calcification
== END 2022-05-31 07:16 | disposition home or self-care (01) ==
LOC: CHSIMG 07:16
PROVIDERS: PCP Internal Medicine; Visit Provider Internal Medicine
DX: R19.4 Change in bowel habit (principal)
CPT/HCPCS: 74177; Q9967

== ENCOUNTER 2022-08-29 13:48 | Outpatient (CLI) | payer MEDICARE, SELFPAY ==
[2022-08-29 14:02] LABS: Hematocrit 29.8 % (37.0-46.0); Hemoglobin 9.3 g/dL (12.4-15.3); Mean Corpuscular HGB Conc 31.2 g/dL (32.0-36.0); Mean Corpuscular Volume 92.8 fL (78.0-102.0); Mean Platelet Volume 9.9 fl (8.7-11.0); Platelet Count Result 401 K/mm3 (150-420); Red Blood Count 3.21 M/mm3 (4.70-6.10); Red Cell Distribution Width 18.6 % (11.6-14.4); White Blood Count 8.9 K/mm3 (4.8-10.8)
[2022-08-29 14:32] LABS: Band Neutrophils Percent 1 % (0-6); Basophils Percent Manual 0 % (0-1); Eosinophils Percent Manual 0 % (1-6); Lymphocytes Absolute Manual 0.71 K/mm3 (1.1-4.5); Lymphocytes Percent Manual 8 % (18-44); Metamyelocytes Percent 2 %; Monocytes Absolute Manual 0.53 K/mm3 (0.1-0.90); Monocytes Percent Manual 6 % (3-9); Myelocytes Percent 3 %; Neutrophils Percent Manual 80 % (46-73); Platelet Estimate Adequate (Adequate); Total Cells Counted 100
[2022-08-29 14:46] LABS: Anion Gap 6 mmol/L (8-16); Blood Urea Nitrogen 13 mg/dL (7-18); Calcium 8.5 mg/dL (8.5-10.1); Carbon Dioxide 29 mmol/L (21-32); Chloride 100 mmol/L (98-108); Estimated Glomerular Filt Rate > 60; Ferritin 198 ng/mL (26-388); Glucose 85 mg/dL (70-99); Iron 61 ug/dL (65-175); Osmolality Calculated 279 mOsm/kg (285-295); Potassium 4.3 mmol/L (3.5-5.1); Sodium 135 mmol/L (136-145)
== END 2022-08-29 13:49 | disposition home or self-care (01) ==
LOC: CHSLAB 13:50
PROVIDERS: PCP Internal Medicine; Visit Provider Internal Medicine
DX: D64.9 Anemia, unspecified (principal); I10 Essential (primary) hypertension
CPT/HCPCS: 36415; 80048; 82728; 83540; 85025

== ENCOUNTER 2022-10-15 11:41 | Outpatient (CLI) | payer MEDICARE, SELFPAY ==
[2022-10-15 11:59] LABS: Basophils Absolute Auto 0.02 K/mm3 (0.00-0.10); Basophils Percent Auto 0.3 % (0.0-1.0); Eosinophils Absolute Auto 0.27 K/mm3 (0.02-0.50); Eosinophils Percent Auto 4.4 % (1.0-6.0); Hematocrit 29.3 % (37.0-46.0); Hemoglobin 9.1 g/dL (12.4-15.3); Immature Granulocyte Absolute 0.08 K/mm3 (0.00-0.00); Immature Granulocyte Percent A 1.3 % (0.0-0.0); Lymphocytes Absolute Auto 0.46 K/mm3 (1.10-4.50); Lymphocytes Percent Auto 7.5 % (18.0-42.0); Mean Corpuscular HGB Conc 31.1 g/dL (32.0-36.0); Mean Corpuscular Hemoglobin 27.7 pg (27.0-31.0); Mean Corpuscular Volume 89.1 fL (78.0-102.0); Mean Platelet Volume 9.5 fl (8.7-11.0); Monocytes Percent Auto 8.2 % (2.0-11.0); Neutrophils Absolute Auto 4.8 K/mm3 (1.7-7.2); Neutrophils Percent Auto 78.3 % (50.0-70.0); Platelet Count Result 416 K/mm3 (150-420); Red Blood Count 3.29 M/mm3 (4.70-6.10); Red Cell Distribution Width 15.7 % (11.6-14.4); White Blood Count 6.1 K/mm3 (4.8-10.8)
[2022-10-15 12:01] LABS: Appearance Urine Clear (Clear); Bilirubin Urine Negative (Negative); Blood Urine Negative (Negative); Color Urine Light Yellow (Yellow); Glucose Urine UA Negative (Negative); Ketones Urine 1+ (Negative); Leukocyte Esterase Ur Trace (Negative); Nitrate Urine Negative (Negative); Protein Urine Negative (Negative); Urobilinogen Urine 0.2 mg/dL (0.2-1.0)
[2022-10-15 12:14] LABS: Add Urine Microscopic? YES; Bacteria Urine None seen /hpf; RBC Urine 0-2 /hpf (0-2); Squamous Epithelial Cell Urine Rare /hpf (Few); WBC Urine 0-3 /hpf (0-3)
[2022-10-15 12:49] LABS: Alanine Aminotransferase 18 U/L (16-63); Albumin Level 3.4 g/dL (3.4-5.0); Alkaline Phosphatase 144 U/L (46-116); Anion Gap 8 mmol/L (8-16); Aspartate Amino Transferase 20 U/L (15-37); Bilirubin,Total 0.2 mg/dL (0.00-1.00); Blood Urea Nitrogen 11 mg/dL (7-18); Calcium 9.2 mg/dL (8.5-10.1); Carbon Dioxide 29 mmol/L (21-32); Chloride 100 mmol/L (98-108); Cholesterol 152 mg/dL (0-200); Estimated Glomerular Filt Rate > 60; Free T3 1.92 pg/mL (2.18-3.98); Free T4 Free Thyroxine 0.83 ng/dL (0.76-1.46); Glucose 90 mg/dL (70-99); HDL Direct 51 mg/dL (40-60); LDL Cholesterol Calculated 85 mg/dL (<130); Osmolality Calculated 283 mOsm/kg (285-295); Potassium 4.5 mmol/L (3.5-5.1); Sodium 137 mmol/L (136-145); Thyroid Stimulating Hormone 6.41 uIU/mL (0.36-3.74); Total Protein 7.2 g/dL (6.4-8.2); Triglycerides 78 mg/dL (0-150)
== END 2022-10-15 11:42 | disposition home or self-care (01) ==
LOC: CHSLAB 11:43
PROVIDERS: PCP Internal Medicine; Visit Provider Internal Medicine
DX: E78.2 Mixed hyperlipidemia (principal); D45 Polycythemia vera; D70.9 Neutropenia, unspecified; E03.2 Hypothyroidism due to medicaments and other exogenous substances; R73.01 Impaired fasting glucose
CPT/HCPCS: 36415; 80053; 80061; 81001; 83036; 84439; 84443; 84481; 85025; 87070; 87147; 87186; 87205

== ENCOUNTER 2022-10-24 09:49 | Outpatient (CLI) | payer MEDICARE, SELFPAY ==
--- NOTE | ~2022-10-24 | US_ITS ---
Limited Abdominal Sonogram: Real-time sonographic imaging of the right upper quadrant was performed. Clinical History: Cirrhosis COMPARISON: 05/01/2022 Findings: The liver mildly heterogeneous in echotexture. No intrahepatic biliary dilatation. There i s a 3.8 x 2.6 x 3.3 cm hyperechoic mass in the right hepatic lobe.. Main portal vein demonstrates nor mal direction of flow. The gallbladder is well distended, and appears normal with no evidence of gall stone or wall thickening. The common bile duct measures 4 mm. The pancreas is obscured by bowel gas shadowing. Impression: 3.8 x 2.6 x 3.3 cm hyperechoic mass in the right hepatic lobe. This is essentially stable from prior exam given differences in imaging technique, most likely representing hemangioma. Reviewed, dictated and finalized at [facility]. Impression: 3.8 x 2.6 x 3.3 cm hyperechoic mass in the right hepatic lobe. This is essentia lly stable from prior exam given differences in imaging technique, most likely representing hemangioma.
== END 2022-10-24 09:50 | disposition home or self-care (01) ==
LOC: CHSIMG 09:50
PROVIDERS: PCP Internal Medicine; Visit Provider Internal Medicine Gastroenterology
DX: K70.30 Alcoholic cirrhosis of liver without ascites (principal)
CPT/HCPCS: 76705

== ENCOUNTER 2022-12-03 09:09 | Outpatient (CLI) | payer MEDICARE, SELFPAY ==
[2022-12-03 09:24] LABS: Basophils Absolute Auto 0.05 K/mm3 (0.00-0.10); Basophils Percent Auto 0.8 % (0.0-1.0); Eosinophils Absolute Auto 0.45 K/mm3 (0.02-0.50); Eosinophils Percent Auto 7.6 % (1.0-6.0); Hematocrit 38.4 % (37.0-46.0); Hemoglobin 11.6 g/dL (12.4-15.3); Immature Granulocyte Absolute 0.05 K/mm3 (0.00-0.00); Immature Granulocyte Percent A 0.8 % (0.0-0.0); Lymphocytes Absolute Auto 0.49 K/mm3 (1.10-4.50); Lymphocytes Percent Auto 8.3 % (18.0-42.0); Mean Corpuscular HGB Conc 30.2 g/dL (32.0-36.0); Mean Corpuscular Hemoglobin 26.6 pg (27.0-31.0); Mean Corpuscular Volume 88.1 fL (78.0-102.0); Mean Platelet Volume 9.5 fl (8.7-11.0); Monocytes Absolute Auto 0.47 K/mm3 (0.10-0.90); Monocytes Percent Auto 7.9 % (2.0-11.0); Neutrophils Absolute Auto 4.4 K/mm3 (1.7-7.2); Neutrophils Percent Auto 74.6 % (50.0-70.0); Platelet Count Result 370 K/mm3 (150-420); Red Blood Count 4.36 M/mm3 (4.70-6.10); Red Cell Distribution Width 17.7 % (11.6-14.4); White Blood Count 5.9 K/mm3 (4.8-10.8)
[2022-12-03 10:00] LABS: Free T3 1.77 pg/mL (2.18-3.98); Free T4 Free Thyroxine 1.16 ng/dL (0.76-1.46)
[2022-12-03 10:18] LABS: Thyroid Stimulating Hormone 1.35 uIU/mL (0.36-3.74)
== END 2022-12-03 09:10 | disposition home or self-care (01) ==
LOC: CHSLAB 09:12
PROVIDERS: PCP Internal Medicine
DX: D45 Polycythemia vera (principal); E03.9 Hypothyroidism, unspecified
CPT/HCPCS: 36415; 84439; 84443; 84481; 85025

== ENCOUNTER 2023-04-18 07:33 | Outpatient (CLI) | payer MEDICARE, SELFPAY ==
--- NOTE | ~2023-04-18 | US_ITS ---
Limited Abdominal Sonogram: Real-time sonographic imaging of the right upper quadrant was performed. Clinical History: Cirrhosis Findings: The liver is normal in overall echotexture. No intrahepatic biliary dilatation. There is a 4.1 x 3.0 x 2.5 cm somewhat irregular hyperechoic mass in the inferior right hepatic lobe, with small focal shadowing calcifications. Main portal vein demonstrates normal direction of flow. The gallblad timothy is absent, compatible prior cholecystectomy. The common bile duct is not dilated. The visualized pancreas, aorta, and IVC are unremarkable. Impression: 4.1 x 3.0 x 2.5 cm inferior right hepatic lobe lesion, correlates with that seen on prior exams, most consistent with benign hemangioma. Status post cholecystectomy. Reviewed, dictated and finalized at location . Impression: 4.1 x 3.0 x 2.5 cm inferior right hepatic lobe lesion, correlates with that see n on prior exams, most consistent with benign hemangioma. Status post cholecystectomy.
== END 2023-04-18 07:34 | disposition home or self-care (01) ==
LOC: CHSIMG 07:35
PROVIDERS: PCP Internal Medicine; Visit Provider Internal Medicine Gastroenterology
DX: K70.30 Alcoholic cirrhosis of liver without ascites (principal); Z90.49 Acquired absence of other specified parts of digestive tract
CPT/HCPCS: 76705

== ENCOUNTER 2023-05-10 11:21 | Outpatient (CLI) | payer MEDICARE, SELFPAY ==
--- NOTE | ~2023-05-10 | XR_ITS ---
AP and lateral views of the right hip Clinical history: Pain Findings: Questionable nondisplaced fracture of the right inferior pubic ramus. No femoral neck fract ure seen. Osseous alignment is anatomic. There is advanced right hip joint osteoarthritis, with scler otic change and joint space narrowing.. Extensive vascular calcifications are present. Impression: Questionable nondisplaced fracture of the right inferior pubic ramus. Advanced right hip joint osteoarthritis. Reviewed, dictated and finalized at location . Impression: Questionable nondisplaced fracture of the right inferior pubic ramus. Advanced right hip joint osteoarthritis.
--- NOTE | ~2023-05-10 | XR_ITS ---
Lumbosacral Spine: AP and lateral views Clinical History: Pain Findings: The normal lordotic curve is maintained. No fracture evident. There is severe degenerative disc narrowing at L4-L5, probable minimal grade 1 retrolisthesis of L4 over L5. There is moderate deg enerative disc narrowing at L1-L2. There is mild degenerative disc change at the remaining disc level s. There is moderate to advanced facet arthropathy throughout the lumbar spine. The sacroiliac joints are normally outlined. Impression: Moderate degenerative spondylosis. Minimal grade 1 retrolisthesis of L4 over L5. Reviewed, dictated and finalized at location M. Impression: Moderate degenerative spondylosis. Minimal grade 1 retrolisthesis of L4 over L5.
== END 2023-05-10 11:22 | disposition home or self-care (01) ==
LOC: CHSIMG 11:23
PROVIDERS: PCP Internal Medicine; Visit Provider Nurse Practitioner Family
DX: M54.50 Low back pain, unspecified (principal); M25.551 Pain in right hip; M43.06 Spondylolysis, lumbar region; M16.11 Unilateral primary osteoarthritis, right hip
CPT/HCPCS: 72100; 73502

== ENCOUNTER 2023-05-11 13:25 | Outpatient (CLI) | payer MEDICARE, SELFPAY ==
--- NOTE | ~2023-05-11 | XR_ITS ---
EXAMINATION: XR pelvis 1-2V DATE: 05/11/2023 13:47 INDICATION: Groin pain and lateral right hip pain post fall TECHNIQUE: An anteroposterior view of the pelvis was obtained. COMPARISON: 05/10/2023 FINDINGS: Alignment is normal. Again seen is a possible nondisplaced fracture of the right inferior pubic ramus . Severe right hip osteoarthritis. Patchy sclerosis and lucency at the cephalad aspect of the right f emoral head and irregular contour to the articular cortex at the superolateral aspect of the femoral head suggestive of osteonecrosis and essentially collapse of the articular cortex. Mild osteoarthriti s at the left hip and bilateral sacral iliac joints. Moderate lower lumbar spondylosis. Scattered vas cular calcifications with stenting at the proximal right femoral artery. IMPRESSION: 1. Possible nondisplaced fracture of the right inferior pubic ramus. 2. Severe right hip osteoarthritis with possible underlying osteonecrosis with or without collapse of the articular surface. Reviewed, dictated and finalized at location A.
== END 2023-05-11 13:26 | disposition home or self-care (01) ==
LOC: CHSIMG 13:26
PROVIDERS: PCP Internal Medicine; Visit Provider Nurse Practitioner Family
DX: R10.2 Pelvic and perineal pain (principal); M16.11 Unilateral primary osteoarthritis, right hip
CPT/HCPCS: 72170

== ENCOUNTER 2023-05-24 08:24 | Outpatient (CLI) | payer MEDICARE, SELFPAY ==
[2023-05-24 09:02] LABS: Basophils Absolute Auto 0.03 K/mm3 (0.00-0.10); Basophils Percent Auto 0.3 % (0.0-1.0); Eosinophils Absolute Auto 0.21 K/mm3 (0.02-0.50); Eosinophils Percent Auto 2.1 % (1.0-6.0); Hematocrit 39.3 % (37.0-46.0); Immature Granulocyte Absolute 0.11 K/mm3 (0.00-0.00); Immature Granulocyte Percent A 1.1 % (0.0-0.0); Lymphocytes Absolute Auto 0.35 K/mm3 (1.10-4.50); Lymphocytes Percent Auto 3.5 % (18.0-42.0); Mean Corpuscular HGB Conc 33.1 g/dL (32.0-36.0); Mean Corpuscular Hemoglobin 30.9 pg (27.0-31.0); Mean Corpuscular Volume 93.3 fL (78.0-102.0); Mean Platelet Volume 8.9 fl (8.7-11.0); Monocytes Absolute Auto 0.63 K/mm3 (0.10-0.90); Monocytes Percent Auto 6.3 % (2.0-11.0); Neutrophils Absolute Auto 8.6 K/mm3 (1.7-7.2); Neutrophils Percent Auto 86.7 % (50.0-70.0); Platelet Count Result 416 K/mm3 (150-420); Red Blood Count 4.21 M/mm3 (4.70-6.10); Red Cell Distribution Width 14.2 % (11.6-14.4)
[2023-05-24 09:05] LABS: Appearance Urine Clear (Clear); Bilirubin Urine Negative (Negative); Blood Urine Negative (Negative); Color Urine Light Yellow (Yellow); Glucose Urine UA Negative (Negative); Ketones Urine Negative (Negative); Leukocyte Esterase Ur Negative LEU/UL (Negative); Nitrate Urine Negative (Negative); Protein Urine Negative (Negative); Specific Grav Ur 1.015 (1.010-1.020); Urobilinogen Urine 0.2 mg/dL (0.2-1.0); pH Urine 5.5 (5.0-8.0)
[2023-05-24 09:18] LABS: Add Urine Microscopic? NO
[2023-05-24 09:46] LABS: Hemoglobin A1C 5.1 % (<5.7)
[2023-05-24 10:12] LABS: Alanine Aminotransferase 13 U/L (16-63); Albumin Level 3.5 g/dL (3.4-5.0); Alkaline Phosphatase 104 U/L (46-116); Anion Gap 9 mmol/L (8-16); Aspartate Amino Transferase 14 U/L (15-37); Bilirubin,Total 0.3 mg/dL (0.00-1.00); Blood Urea Nitrogen 9 mg/dL (7-18); Calcium 9.5 mg/dL (8.5-10.1); Carbon Dioxide 29 mmol/L (21-32); Chloride 97 mmol/L (98-108); Cholesterol 146 mg/dL (0-200); Estimated Glomerular Filt Rate > 60; Free T3 2.26 pg/mL (2.18-3.98); Free T4 Free Thyroxine 1.08 ng/dL (0.76-1.46); Glucose 97 mg/dL (70-99); HDL Direct 56 mg/dL (40-60); LDL Cholesterol Calculated 73 mg/dL (<130); Osmolality Calculated 278 mOsm/kg (285-295); Potassium 4.6 mmol/L (3.5-5.1); Sodium 135 mmol/L (136-145); Thyroid Stimulating Hormone 3.07 uIU/mL (0.36-3.74); Total Protein 6.9 g/dL (6.4-8.2); Triglycerides 83 mg/dL (0-150); Vitamin B12 1745 pg/mL (193-986)
== END 2023-05-24 08:25 | disposition home or self-care (01) ==
LOC: CHSLAB 08:26
PROVIDERS: PCP Internal Medicine; Visit Provider Internal Medicine
DX: N39.0 Urinary tract infection, site not specified (principal); I10 Essential (primary) hypertension; E53.8 Deficiency of other specified B group vitamins; E03.2 Hypothyroidism due to medicaments and other exogenous substances
CPT/HCPCS: 36415; 80053; 80061; 81003; 82607; 83036; 84439; 84443; 84481; 85025

== ENCOUNTER 2023-06-04 11:23 | Outpatient (CLI) | payer MEDICARE, SELFPAY ==
[2023-06-04 11:34] LABS: Basophils Absolute Auto 0.02 K/mm3 (0.00-0.10); Basophils Percent Auto 0.3 % (0.0-1.0); Eosinophils Absolute Auto 0.04 K/mm3 (0.02-0.50); Eosinophils Percent Auto 0.5 % (1.0-6.0); Hematocrit 42.1 % (37.0-46.0); Hemoglobin 13.8 g/dL (12.4-15.3); Immature Granulocyte Absolute 0.05 K/mm3 (0.00-0.00); Immature Granulocyte Percent A 0.7 % (0.0-0.0); Lymphocytes Absolute Auto 0.45 K/mm3 (1.10-4.50); Lymphocytes Percent Auto 6.1 % (18.0-42.0); Mean Corpuscular HGB Conc 32.8 g/dL (32.0-36.0); Mean Corpuscular Hemoglobin 30.5 pg (27.0-31.0); Mean Corpuscular Volume 92.9 fL (78.0-102.0); Mean Platelet Volume 9.1 fl (8.7-11.0); Monocytes Percent Auto 6.8 % (2.0-11.0); Neutrophils Absolute Auto 6.3 K/mm3 (1.7-7.2); Neutrophils Percent Auto 85.6 % (50.0-70.0); Platelet Count Result 371 K/mm3 (150-420); Red Blood Count 4.53 M/mm3 (4.70-6.10); Red Cell Distribution Width 14.1 % (11.6-14.4); White Blood Count 7.3 K/mm3 (4.8-10.8)
== END 2023-06-04 11:24 | disposition home or self-care (01) ==
LOC: CHSLAB 11:25
PROVIDERS: PCP Internal Medicine
DX: D45 Polycythemia vera (principal)
CPT/HCPCS: 36415; 85025

== ENCOUNTER 2023-06-12 13:57 | Emergency (ER) | payer MEDICARE, SELFPAY ==
[2023-06-12] VITALS (30 sets, daily range): BP systolic 115–182; BP diastolic 41–96; PULSE 78–123; RESP 19–24; TEMP 36.6–36.9; O2SAT 83–100
--- NOTE | ~2023-06-12 | CT_ITS ---
EXAMINATION: CTA chest PE protocol DATE: 06/12/2023 16:09 INDICATION: Shortness of breath. Cough. TECHNIQUE: Computed tomography angiography (CTA) of the chest was performed with 100 mL Omnipaque-350 intravenous contrast timed to evaluate the pulmonary arteries. Coronal maximum intensity projection 3D-reconstructions were created by the technologist. Automated exposure control and iterative reconst ruction technique were employed. The dose-length product was 324.07 mGy-cm. COMPARISON: Chest CT 11/30/2019 FINDINGS: There is severe emphysema. There are widespread centrilobular nodules, tree-in-bud opacitie s, and patchy airspace opacities in all lobes with an inferior and posterior lung predominance, consi stent with pneumonia. Calcified pulmonary nodules and calcified hilar and mediastinal lymph nodes are consistent with old granulomatous disease. There is mild right hilar lymphadenopathy, likely reactiv e. No pleural effusion. The heart size is normal. There are coronary artery calcifications. There is a small pericardial effusion. There is calcified atherosclerosis of the aorta and many of the other a rteries. Calcifications in the spleen are consistent with old granulomatous disease. The central pulm onary arteries are enlarged, consistent with pulmonary arterial hypertension. There is no pulmonary e mbolus. There are bridging endplate osteophytes at multiple levels in the spine, consistent with diff use idiopathic skeletal hyperostosis (DISH). There is a chronic compression fracture of T5. There is mild chronic anterior wedging of multiple vertebral bodies. IMPRESSION: 1. Widespread pneumonia bilaterally. 2. Mild right hilar lymphadenopathy, likely reactive. 3. Severe emphysema. 4. Small pericardial effusion. 5. No pulmonary embolus. Reviewed, dictated and finalized at location A. [employer]
--- NOTE | ~2023-06-12 | XR_ITS ---
XR chest 1V portable DATE: 06/12/2023 14:27 INDICATION: Cough. Current multiple malignancies. TECHNIQUE: Portable upright AP chest on 06/12/2023 at 1425 hours COMPARISON: 07/18/2021 2 view chest FINDINGS: There is diffuse extensive right lung infiltrate relatively sparing only the right apical a claudia. There is patchy infiltrate in the left mid and particularly lower lung field. There is chronic elevation of left diaphragm. No pleural effusion, pulmonary vascular congestion or pneumothorax is detected. Heart size is within normal range. Is aortic arch calcification. IMPRESSION: Extensive bilateral pulmonary infiltrates, right greater than left, likely due to bilater al pneumonia Reviewed, dictated and finalized at location B. [employer] IMPRESSION: Extensive bilateral pulmonary infiltrates, right greater than left, likely due to bilateral pneumonia
--- NOTE | 2023-06-12 14:20 | ED.GENADULT ---
HPI - General Adult General Chief complaint: Unspecified Stated complaint: low BP Time Seen by Provider: 06/12/23 14:05 Course Vital Signs Vital signs: Vital Signs Temperature 36.6 C 06/12/23 13:58 Pulse Rate 103 H 06/12/23 13:58 Respiratory Rate 19 06/12/23 13:58 Blood Pressure 115/53 L 06/12/23 13:58 Pulse Oximetry 86 L 06/12/23 13:58 Oxygen Delivery Room Air 06/12/23 13:58 Temperature 36.6 C 06/12/23 13:58 Pulse Rate 123 H 06/12/23 14:19 Respiratory Rate 24 H 06/12/23 14:19 Blood Pressure 115/53 L 06/12/23 13:58 Pulse Oximetry 84 L 06/12/23 14:19 Oxygen Delivery Nasal Cannula 06/12/23 14:19 Oxygen Flow Rate 2 06/12/23 14:19 Medical Decision Making Vital Signs Vital Signs: Vital Signs Temperature 36.6 C 06/12/23 13:58 Pulse Rate 103 H 06/12/23 13:58 Respiratory Rate 19 06/12/23 13:58 Blood Pressure 115/53 L 06/12/23 13:58 Pulse Oximetry 86 L 06/12/23 13:58 Oxygen Delivery Room Air 06/12/23 13:58 Temperature 36.6 C 06/12/23 13:58 Pulse Rate 123 H 06/12/23 14:19 Respiratory Rate 24 H 06/12/23 14:19 Blood Pressure 115/53 L 06/12/23 13:58 Pulse Oximetry 84 L 06/12/23 14:19 Oxygen Delivery Nasal Cannula 06/12/23 14:19 Oxygen Flow Rate 2 06/12/23 14:19 Discharge Plan Discharge Follow-up/Referrals: Blake Valverde MD [Primary Care Provider] -
--- NOTE | 2023-06-12 14:28 | ECG_ITS ---
Measurements Intervals [place] Rate: 85 P: 28 OK: 129 QRS: -28 QRSD: 106 T: 35 QT: 400 QTc: 477 Interpretive Statements SINUS RHYTHM EARLY PRECORDIAL R/S TRANSITION MINIMAL Q WAVES- HIGH LATERAL LEADS BORDERLINE ST-T WAVE ABNORMALITY- DIFFUSE LEADS BASELINE ARTIFACT- I, II, III BORDERLINE ECG COMPARED TO ECG 12/05/2020 10:52:55 ST-T WAVE ABNORMALITY NOW PRESENT Electronically Signed On 06-12-2023 15:27:10 REFLECTOR DRILLER AND DEBURRER by Kamaljit Persaud D.O.
--- NOTE | 2023-06-12 14:33 | ED.SOB ---
HPI - SOB/Dyspnea General Chief Complaint: Unspecified Stated Complaint: low BP Time Seen by Provider: 06/12/23 14:05 History of Present Illness HPI Narrative: 78-year-old male, ex-smoker with a history of hypertension, hypothyroidism, polycythemia, BPH, prostate cancer, extensive atherosclerosis, COPD, head and neck cancer status post radiation, right lung cancer status post wedge resection was transferred from his primary care physician's office for -- low blood pressure. -- Acute on chronic shortness of breath for the past 2 days. -- Cough with mucopurulent sputum. -- Patient was noted to be hypoxic on presentation. No fever or chills. No Chest pain. MD elicited complaint: shortness of breath and cough Pertinent past history: COPD Onset (ago): day(s) Timing: constant Exacerbating factors: nothing Relieving factors: nothing Known history of: COPD Associated symptoms: cough, wheezing and lightheadedness ( Lightheadedness is 1st noted when he stands up from a sitting position. It resolved spontaneously.) Treatment prior to arrival: none Related Data Home oxygen amount: none Home Medications Medication Instructions Recorded Confirmed chlorhexidine gluconate 0.12 % 15 ml PO BID 06/12/23 06/12/23 mouthwash clonidine HCl 0.1 mg tablet 0.1 mg PO BID 06/12/23 06/12/23 clopidogrel 75 mg tablet 75 mg PO DAILY 06/12/23 06/12/23 finasteride 5 mg tablet 5 mg PO DAILY 06/12/23 06/12/23 levothyroxine 112 mcg tablet 112 mcg PO DAILY 06/12/23 06/12/23 pentoxifylline 400 mg 400 mg PO BID 06/12/23 06/12/23 tablet,extended release prednisone 20 mg tablet 20 mg PO USEASDIRECTD 06/12/23 06/12/23 ruxolitinib 10 mg tablet (Jakafi) 10 mg PO DAILY 06/12/23 06/12/23 tamsulosin 0.4 mg capsule 0.4 mg PO DAILY 06/12/23 06/12/23 vitamin E mixed 1,000 unit capsule 1 unit PO DAILY 06/12/23 06/12/23 Allergies Allergy/AdvReac Type Severity Reaction Status Date / Time No Known Allergies Allergy Verified 06/12/23 14:47 Review of Systems Review of Systems: All systems reviewed & are unremarkable except as noted in HPI and below Constitutional: Constitutional: Reports as per HPI and Reports no additional constitutional complaints Eyes: Eyes: Reports as per HPI and Reports no additional eye complaints ENT: Reports system reviewed and no additional complaints, except as documented and Reports as per HPI Cardiovascular: Cardiovascular: Reports as per HPI and Reports no additional cardiovascular complaints Respiratory: Respiratory: Reports as per HPI, Reports no additional respiratory complaints, Reports cough and Reports dyspnea Gastrointestinal: Gastrointestinal: Reports as per HPI and Reports no additional gastrointestinal complaints Genitourinary: Genitourinary: Reports no additional male genitourinary complaints and Reports as per HPI Musculoskeletal: Musculoskeletal: Reports no additional musculoskeletal complaints and Reports as per HPI Integumentary/Breasts: Skin/Breast: Reports system reviewed and no additional complaints, except as docu and Reports as per HPI Neurologic: Reports system reviewed and no additional complaints, except as documented and Reports as per HPI Psychiatric: Psychiatric: Reports no additional psychiatric complaints and Reports as per HPI Endocrine: Endocrine: Reports no additional endocrine complaints and Reports as per HPI Hematologic/Lymphatic: Hematologic/Lymphatic: Reports no additional hematologic/lymphatic complaints and Reports as per HPI Allergic/Immunologic: Allergic/Immunologic: Reports no additional allergic/immunologic complaints and Reports as per HPI PMF Past Medical History Medical History (Updated 06/12/23 @ 18:12 by Fady Hernandez MD) Asthma exacerbation in COPD BPH (benign prostatic hyperplasia) Cancer of neck Hypertension Hypothyroidism Lung cancer Polycythemia Prostate cancer Social History Social History (Updated 06/12/23 @ 14:39 by Fady Hernandez MD) Soci
[2023-06-12] MEDS: IPRATROPIUM 0.5 MG/ALBUTEROL SULFATE 2.5 MG AMPUL.NEB 3 ML INHALATION (14:47)
[2023-06-12 14:49] LABS: Basophils Absolute Auto 0.03 K/mm3 (0.00-0.10); Basophils Percent Auto 0.2 % (0.0-1.0); Eosinophils Absolute Auto 0.03 K/mm3 (0.02-0.50); Eosinophils Percent Auto 0.2 % (1.0-6.0); Hematocrit 37.1 % (37.0-46.0); Hemoglobin 12.2 g/dL (12.4-15.3); Immature Granulocyte Absolute 0.23 K/mm3 (0.00-0.00); Immature Granulocyte Percent A 1.8 % (0.0-0.0); Lymphocytes Absolute Auto 0.24 K/mm3 (1.10-4.50); Lymphocytes Percent Auto 1.9 % (18.0-42.0); Mean Corpuscular HGB Conc 32.9 g/dL (32.0-36.0); Mean Corpuscular Hemoglobin 30.3 pg (27.0-31.0); Mean Corpuscular Volume 92.3 fL (78.0-102.0); Mean Platelet Volume 9.8 fl (8.7-11.0); Monocytes Absolute Auto 1.05 K/mm3 (0.10-0.90); Monocytes Percent Auto 8.4 % (2.0-11.0); Neutrophils Absolute Auto 10.9 K/mm3 (1.7-7.2); Neutrophils Percent Auto 87.5 % (50.0-70.0); Platelet Count Result 472 K/mm3 (150-420); Red Blood Count 4.02 M/mm3 (4.70-6.10); Red Cell Distribution Width 14.6 % (11.6-14.4); White Blood Count 12.5 K/mm3 (4.8-10.8)
[2023-06-12 15:07] LABS: INR 1.4; Partial Thromboplastin Time 34.6 SEC (23.90-30.70)
[2023-06-12 15:09] LABS: D Dimer 1.02 mg/L (0.19-0.50)
[2023-06-12 15:13] LABS: Lactic Acid Reflex 1.8 mmol/L (0.4-2.0)
[2023-06-12 15:20] LABS: Alanine Aminotransferase 50 U/L (16-63); Albumin Level 2.6 g/dL (3.4-5.0); Alkaline Phosphatase 247 U/L (46-116); Anion Gap 7 mmol/L (8-16); Aspartate Amino Transferase 38 U/L (15-37); Bilirubin,Total 0.4 mg/dL (0.00-1.00); Blood Urea Nitrogen 25 mg/dL (7-18); Calcium 9.4 mg/dL (8.5-10.1); Carbon Dioxide 33 mmol/L (21-32); Chloride 100 mmol/L (98-108); Estimated Glomerular Filt Rate > 60; Glucose 114 mg/dL (70-99); Lipase 18 U/L (16-77); NT Pro B Type Natriuretic Pept 2655 pg/mL (0-450); Osmolality Calculated 295 mOsm/kg (285-295); Potassium 3.2 mmol/L (3.5-5.1); Sodium 140 mmol/L (136-145); Total Protein 7.3 g/dL (6.4-8.2); Troponin I 9.5 ng/L (0.00-60.4)
[2023-06-12 15:25] LABS: Influenza A QL RT-PCR Negative (Negative); Influenza B QL RT-PCR Negative (Negative); SARS-CoV-2 RNA PCR Negative (Negative)
[2023-06-12 15:26] LABS: RSV RNA, RT-PCR Negative (Negative)
[2023-06-12] MEDS: POTASSIUM CHLORIDE 20 MEQ ER TABLET PO (15:55)
[2023-06-12] MEDS: AZITHROMYCIN 500 MG/NS 250 ML BAG 250 MG IVPB (16:14)
--- NOTE | 2023-06-12 19:22 | PC.NURSE ---
pt resting per cot. in room with pt. explained wait time for bed placement. pt voiced understanding.
--- NOTE | 2023-06-12 21:38 | PM.IMHP ---
H&P: HPI History of Present Illness Date/Time: 06/12/23 21:38 Chief Complaint: sob Narrative: XR chest 1V portable DATE: 06/12/2023 14:27 INDICATION: Cough. Current multiple malignancies.? TECHNIQUE: Portable upright AP chest on 06/12/2023 at 1425 hours? COMPARISON: 07/18/2021 2 view chest? FINDINGS: There is diffuse extensive right lung infiltrate relatively sparing only the right apical area. There is patchy infiltrate in the left mid and particularly lower lung field. There is chronic elevation of left diaphragm. No pleural effusion, pulmonary vascular congestion or pneumothorax is detected. Heart size is within normal range. Is aortic arch calcification. IMPRESSION: Extensive bilateral pulmonary infiltrates, right greater than left, likely due to bilateral pneumonia? EXAMINATION: CTA chest PE protocol DATE: 06/12/2023 16:09 INDICATION: Shortness of breath. Cough. TECHNIQUE: Computed tomography angiography (CTA) of the chest was performed with 100 mL Omnipaque-350 intravenous contrast timed to evaluate the pulmonary arteries. Coronal maximum intensity projection 3D-reconstructions were created by the technologist. Automated exposure control and iterative reconstruction technique were employed. The dose-length product was 324.07 mGy-cm. COMPARISON: Chest CT 11/30/2019 FINDINGS: There is severe emphysema. There are widespread centrilobular nodules, tree-in-bud opacities, and patchy airspace opacities in all lobes with an inferior and posterior lung predominance, consistent with pneumonia. Calcified pulmonary nodules and calcified hilar and mediastinal lymph nodes are consistent with old granulomatous disease. There is mild right hilar lymphadenopathy, likely reactive. No pleural effusion. The heart size is normal. There are coronary artery calcifications. There is a small pericardial effusion. There is calcified atherosclerosis of the aorta and many of the other arteries. Calcifications in the spleen are consistent with old granulomatous disease. The central pulmonary arteries are enlarged, consistent with pulmonary arterial hypertension. There is no pulmonary embolus. There are bridging endplate osteophytes at multiple levels in the spine, consistent with diffuse idiopathic skeletal hyperostosis (DISH). There is a chronic compression fracture of T5. There is mild chronic anterior wedging of multiple vertebral bodies. IMPRESSION: 1. Widespread pneumonia bilaterally. 2. Mild right hilar lymphadenopathy, likely reactive. 3. Severe emphysema. 4. Small pericardial effusion. 5. No pulmonary embolus. Review of Systems Review of Systems: sob Constitutional: Constitutional: Reports chills, Reports fatigue and Reports weakness Eyes: Eyes: Denies change in vision ENT: Denies dysphagia, Denies vertigo, Denies dizziness and Denies odynophagia Cardiovascular: Cardiovascular: Denies chest pain, Denies radiating jaw, neck or arm pain, Denies palpitations and Reports dyspnea Respiratory: Respiratory: Reports cough, Reports dyspnea and Reports wheezing Gastrointestinal: Gastrointestinal: Denies abdominal pain, Denies dyspepsia, Denies heartburn, Denies diarrhea, Denies nausea and Denies vomiting Genitourinary: Genitourinary: Denies dysuria Musculoskeletal: Musculoskeletal: Reports back pain and Denies myalgias Integumentary/Breasts: Skin/Breast: Denies rash Neurologic: Denies vertigo, Denies dizziness, Denies focal weakness and Denies Sensory deficit (Neuro) Psychiatric: Psychiatric: Reports no additional psychiatric complaints and Reports as per HPI Endocrine: Endocrine: Denies cold intolerance, Denies flushing, Denies heat intolerance, Denies polyphagia, Denies polydipsia, Denies polyuria and Denies palpitations Hematologic/Lymphatic: Hematologic/Lymphatic: Reports no additional hematologic/lymphatic complaints and Reports as per HPI Allergic/Immunologic: Allergic/Immunologic: Reports no additional allergic/imm
[2023-06-14 06:57] LABS: Procalcitonin 0.1 ng/mL
--- NOTE | 2023-06-18 12:31 | PC.NURSE ---
Final blood culture report: no growth after 5 days, no further treatment or action needed.
== END 2023-06-12 22:35 | disposition short-term general hospital (02) ==
PROVIDERS: Emergency Provider Internal Medicine Critical Care Medicine; PCP Internal Medicine
DX: J18.9 Pneumonia, unspecified organism (principal); I10 Essential (primary) hypertension; E03.9 Hypothyroidism, unspecified; J44.9 Chronic obstructive pulmonary disease, unspecified; Z85.46 Personal history of malignant neoplasm of prostate; Z85.118 Personal history of other malignant neoplasm of bronchus and lung; Z79.899 Other long term (current) drug therapy; Z20.822 Contact with and (suspected) exposure to COVID-19; Z87.891 Personal history of nicotine dependence
CPT/HCPCS: 36415; 71045; 71275; 80053; 83605; 83690; 83880; 84145; 84484; 85025; 85380; 85610; 85730; 87040; 87637; 93005; 94640; 96365; 96367; 99285; A9270; J0456; J0696; J7120; Q9967

== ENCOUNTER 2023-06-13 00:10 | Inpatient (IN) | payer MEDICARE, SELFPAY ==
[2023-06-12 11:14] VITALS: BP 146/66; PULSE 79; RESP 22; TEMP 36.5; O2SAT 90
[2023-06-12 23:33] VITALS: BMI 21.6
--- NOTE | 2023-06-12 23:46 | ADMGEN ---
This patient, Rick Marie, was admitted to IMU Room 200-01. Patient/family oriented to hospital policies and general routines including ID bracelet, bed and alarms, visiting hours, pain management, procedures, bathroom and other care routines, personal items, smoking policy, room service/diet, and visiting hours. Information on how to activate the Rapid Response Team has been discussed. Patient/Family are encouraged to report perceived risks to care and to ask questions if they do not understand what they are told or what they should do.
[2023-06-12] MEDS: WATER FOR IRRIGATION, STERILE 1,000 ML BOTTLE 1000 ML (23:56)
[2023-06-13] VITALS (25 sets, daily range): BP systolic 140–180; BP diastolic 47–68; PULSE 72–106; RESP 16–22; TEMP 35.7–37; O2SAT 87–100; BMI 21.6
--- NOTE | 2023-06-13 01:16 | PM.IMHP ---
H&P: HPI History of Present Illness Date/Time: 06/13/23 01:16 Chief Complaint: sob Narrative: This is a 78-year-old male past medical history significant for asthma/COPD, head and neck cancer, hypertension, lung cancer, hypothyroidism, polycythemia. Patient comes as a direct transfer from [facility] emergency room due to respiratory failure. Patient was found to have extensive bilateral pulmonary infiltrates, bilateral pneumonia. Patient complains of shortness of breath, cough, sputum production, generalized malaise, fatigue. XR chest 1V portable DATE: 06/12/2023 14:27 INDICATION: Cough. Current multiple malignancies.? TECHNIQUE: Portable upright AP chest on 06/12/2023 at 1425 hours? COMPARISON: 07/18/2021 2 view chest? FINDINGS: There is diffuse extensive right lung infiltrate relatively sparing only the right apical area. There is patchy infiltrate in the left mid and particularly lower lung field. There is chronic elevation of left diaphragm. No pleural effusion, pulmonary vascular congestion or pneumothorax is detected. Heart size is within normal range. Is aortic arch calcification. IMPRESSION: Extensive bilateral pulmonary infiltrates, right greater than left, likely due to bilateral pneumonia. EXAMINATION: CTA chest PE protocol DATE: 06/12/2023 16:09 INDICATION: Shortness of breath. Cough. TECHNIQUE: Computed tomography angiography (CTA) of the chest was performed with 100 mL Omnipaque-350 intravenous contrast timed to evaluate the pulmonary arteries. Coronal maximum intensity projection 3D-reconstructions were created by the technologist. Automated exposure control and iterative reconstruction technique were employed. The dose-length product was 324.07 mGy-cm. COMPARISON: Chest CT 11/30/2019 FINDINGS: There is severe emphysema. There are widespread centrilobular nodules, tree-in-bud opacities, and patchy airspace opacities in all lobes with an inferior and posterior lung predominance, consistent with pneumonia. Calcified pulmonary nodules and calcified hilar and mediastinal lymph nodes are consistent with old granulomatous disease. There is mild right hilar lymphadenopathy, likely reactive. No pleural effusion. The heart size is normal. There are coronary artery calcifications. There is a small pericardial effusion. There is calcified atherosclerosis of the aorta and many of the other arteries. Calcifications in the spleen are consistent with old granulomatous disease. The central pulmonary arteries are enlarged, consistent with pulmonary arterial hypertension. There is no pulmonary embolus. There are bridging endplate osteophytes at multiple levels in the spine, consistent with diffuse idiopathic skeletal hyperostosis (DISH). There is a chronic compression fracture of T5. There is mild chronic anterior wedging of multiple vertebral bodies. IMPRESSION: 1. Widespread pneumonia bilaterally. 2. Mild right hilar lymphadenopathy, likely reactive. 3. Severe emphysema. 4. Small pericardial effusion. 5. No pulmonary embolus. Review of Systems Review of Systems: Shortness of breath, cough Constitutional: Constitutional: Reports malaise and Reports night sweats Eyes: Eyes: Denies change in vision ENT: Denies dysphagia, Denies vertigo, Denies dizziness and Denies odynophagia Cardiovascular: Cardiovascular: Denies chest pain, Denies radiating jaw, neck or arm pain and Denies palpitations Respiratory: Respiratory: Reports cough, Reports dyspnea, Reports dyspnea on exertion and Reports wheezing Gastrointestinal: Gastrointestinal: Denies coffee ground emesis, Denies dyspepsia, Denies diarrhea, Denies nausea, Denies vomiting and Denies hematemesis Genitourinary: Genitourinary: Denies dysuria Musculoskeletal: Musculoskeletal: Denies arthralgias and Denies joint swelling Integumentary/Breasts: Skin/Breast: Denies rash Neurologic: Denies focal weakness and Denies Sensory deficit (Neuro) Psychiatric: Psychia
[2023-06-13] MEDS: cefTRIAXone 2 GM/NS 100 ML 2 GM/100 ML BAG IVPB (01:56)
[2023-06-13] MEDS: AZITHROMYCIN 500 MG/NS 250 ML 500 MG/250 ML BAG 250 MG IVPB (01:56)
[2023-06-13] MEDS: IPRATROPIUM BR 0.02% INH SOLN 0.5 MG/2.5 ML VIAL INHALATION ×5 (03:04→19:37)
[2023-06-13] MEDS: ALBUTEROL SULFATE NEB 2.5 MG/3 ML INH INHALATION ×5 (03:04→19:37)
[2023-06-13 05:34] LABS: Hematocrit 34.4 % (42.0-52.0); Hemoglobin 11.1 g/dL (14.0-18.0); Mean Corpuscular HGB Conc 32.3 g/dl (32-36); Mean Corpuscular Hemoglobin 29.9 pg (26-34); Mean Corpuscular Volume 92.7 fl (80-100); Platelet Count Result 419 k/mm3 (150-375); Red Blood Count 3.71 M/mm3 (4.6-6.20); White Blood Count 9.8 K/mm3 (4.5-10.0)
--- NOTE | 2023-06-13 06:08 | PHAR ---
Addendum entered by Natividad HortonPh. 06/14/23 06:52: Ruxolitinib was a 5mg tablet (confirmed) home med list has both 5mg and 10mg tablets linked form external history. The 10mg was entered on admission although the 5mg dose is the current Rx. Original Note: HOME MED (Ruxolitinib [Jakafi] 10 mg tablet) verified and sent back to [facility]
[2023-06-13 06:11] LABS: Anion Gap 11 mmol/L (8-16); Blood Urea Nitrogen 17 mg/dL (9-20); Calcium 8.9 mg/dL (8.4-10.2); Carbon Dioxide 28 mmol/L (22-30); Chloride 102 mmol/L (98-107); Estimated CRCL calculation 91 ml/min; Estimated Glomerular Filt Rate > 60; Glucose 116 mg/dL (65-110); Magnesium 1.9 mg/dL (1.6-2.3); Phosphorus 2.7 mg/dL (2.5-4.5); Sodium 141 mmol/L (137-145)
[2023-06-13] MEDS: methylPREDNISolone SOD SUCC 125 MG VIAL 60 MG IV PUSH ×3 (06:34→17:35)
[2023-06-13] MEDS: LEVOTHYROXINE SODIUM 112 MCG TABLET BY MOUTH (06:35)
[2023-06-13 07:00] LABS: Band Neutrophils Percent 3 % (0-6); Lymphocytes Absolute Manual 0.19 K/mm3 (1.1-4.5); Lymphocytes Percent Manual 2 % (18-44); Monocytes Absolute Manual 0.49 K/mm3 (0.1-0.90); Monocytes Percent Manual 5 % (3-9); Neutrophils Absolute Manual 9.11 K/mm3 (1.3-6.7); Neutrophils Percent Manual 90 % (46-73); Total Cells Counted 100
[2023-06-13 07:01] LABS: Ovalocytes 1+ (NORMAL); Platelet Estimate Increased (Adequate); Poikilocytosis 1+ (NORMAL); Schistocytes None Seen (NORMAL)
[2023-06-13] MEDS: FINASTERIDE 5 MG TABLET PO (08:42)
[2023-06-13] MEDS: PENTOXIFYLLINE 400 MG TABCR PO ×2 (08:42→17:26)
[2023-06-13] MEDS: ENOXAPARIN 40 MG/0.4 ML SYRINGE SUB-Q (08:42)
[2023-06-13] MEDS: TAMSULOSIN HCL 0.4 MG CAPSULE PO (08:42)
[2023-06-13] MEDS: CLOPIDOGREL BISULFATE 75 MG TABLET PO (08:42)
[2023-06-13] MEDS: cloNIDine HCL 0.1 MG TABLET PO ×2 (08:42→17:26)
[2023-06-13] MEDS: ASPIRIN 325 MG TABLET PO (08:42)
[2023-06-13] MEDS: CHLORHEXIDINE GLUCONATE 0.12% ORAL RINSE 473 ML BTL (*BKC) 15 ML SWISH/SPIT ×2 (08:43→17:27)
--- NOTE | 2023-06-13 09:15 | PM.IMPN ---
Progress Note: A&P Assessment and Plan (1) Multifocal pneumonia: Code(s): J18.9 - Pneumonia, unspecified organism Status: Acute Assessment and Plan: Started on Rocephin azithromycin 06/12 (2) Acute hypoxic respiratory failure: Code(s): J96.01 - Acute respiratory failure with hypoxia Status: Acute (3) Asthma exacerbation in COPD: Code(s): J44.1 - Chronic obstructive pulmonary disease with (acute) exacerbation; J45.901 - Unspecified asthma with (acute) exacerbation Status: Acute Assessment and Plan: prednisone nebs (4) Lung cancer: Code(s): C34.90 - Malignant neoplasm of unspecified part of unspecified bronchus or lung Status: Acute (5) Polycythemia: Code(s): D75.1 - Secondary polycythemia Status: Acute (6) Hypertension: Code(s): I10 - Essential (primary) hypertension Status: Acute Assessment and Plan: Blood pressure reviewed 06/13 (7) BPH (benign prostatic hyperplasia): Code(s): N40.0 - Benign prostatic hyperplasia without lower urinary tract symptoms Status: Acute Plan DVT prophylaxis with Lovenox GI prophylaxis with PPI Code status full code Subjective Date/time seen: 06/13/23 09:15 Interval history: 78-year-old male with history of hypothyroidism, prostate cancer, COPD, among other comorbidities is presenting with shortness of breath and currently being treated for pneumonia. No overnight events noted. No chest pain. No nausea, vomiting or diarrhea. No fevers or chills. Still SOB, somewhat improved from yesterday. Review of Systems Review of Systems: 12 point review of systems was assessed and was negative except as noted in the HPI Exam Narrative: General: No acute distress, alert and oriented per baseline HEENT: Atraumatic, normocephalic, mucous membranes moist CV: Regular rate and rhythm, S1, S2 Lungs: Coarse breath sounds throughout, some expiratory wheezes, diminished at bases Abdomen: Soft, nontender, nondistended Extremities: Normal to inspection Skin: No rashes noted, no lesions or wounds seen Psych: Euthymic, normal affect Objective Data Vital Signs Vital Signs: Vital Signs - 24 hr 06/12/23 11:14 06/13/23 00:00 06/13/23 02:00 Temperature 97.7 F Pulse Rate 79 75 Respiratory Rate 22 H Blood Pressure 146/66 H Pulse Oximetry 90 99 Oxygen Delivery High Flow Nasal Cannula Oxygen Flow Rate 5 Fraction of Inspired Oxygen 06/13/23 00:00 06/13/23 03:07 06/13/23 03:07 Temperature Pulse Rate 83 78 78 Respiratory Rate 16 16 Blood Pressure Pulse Oximetry 97 Oxygen Delivery Nasal Cannula Oxygen Flow Rate 3 Fraction of Inspired Oxygen 32 06/13/23 03:14 06/13/23 03:55 06/13/23 04:00 Temperature 97.7 F Pulse Rate 72 80 Respiratory Rate 16 22 H Blood Pressure 180/47 H Pulse Oximetry 99 92 Oxygen Delivery High Flow Nasal Cannula Oxygen Flow Rate 4.5 Fraction of Inspired Oxygen 06/13/23 04:00 06/13/23 06:00 06/13/23 07:45 Temperature Pulse Rate 80 81 Respiratory Rate Blood Pressure Pulse Oximetry 97 Oxygen Delivery Nasal Cannula Oxygen Flow Rate 3 Fraction of Inspired Oxygen 06/13/23 07:45 06/13/23 08:00 06/13/23 08:33 Temperature 97.5 F L Pulse Rate 72 73 Respiratory Rate 20 16 Blood Pressure 177/68 H Pulse Oximetry 97 94 Oxygen Delivery Nasal Cannula Oxygen Flow Rate 3 Fraction of Inspired Oxygen Intake/Output Intake/Output: Intake & Output 06/10/23 06/11/23 06/12/23 06/13/23 23:59 23:59 23:59 23:59 Intake Total 440 Output Total 500 Balance -60 Meds/Results Medications: Active Medications Generic Name Dose Route Start Last Admin Trade Name Freq PRN Reason Stop Dose Admin Acetaminophen 650 mg 06/13/23 00:10 Acetaminophen 325 Mg Tablet PO Q4H PRN Mild Pain (1-3) or Fever Al Hydrox/Mg Hydrox/
--- NOTE | 2023-06-13 11:32 | PHAR ---
The patient's home med of Jakafi (ruxolitinib) 5mg has been verified.
[2023-06-13] MEDS: FUROSEMIDE INJ 40 MG/4 ML VIAL IV PUSH (11:42)
[2023-06-13] MEDS: PANTOPRAZOLE 40 MG TABLET PO (17:26)
--- NOTE | 2023-06-13 18:37 | PC.NURSE ---
This patient, Rick Marie, was transferred to [[facility] ] on 06/13/23 at 1837. Personal belongings sent with patient. Report given to [Susanne ]. Appropriate documentation sent with patient.
--- NOTE | 2023-06-13 18:55 | PC.NURSE ---
This patient, Rick Marie, was received from [[id number]] on 06/13/23 at 1855. Patient/family oriented to unit policies and routines.
[2023-06-14] VITALS (13 sets, daily range): BP systolic 135–171; BP diastolic 43–65; PULSE 73–84; RESP 16–19; TEMP 35.6–36; O2SAT 92–100
--- NOTE | 2023-06-14 | ECHO_ITS ---
Patient Info Name: Rick Marie Age: 78 years : 1945 Gender: Male Ht: 72 in Wt: 159 lbs BSA: 1.91 m2 HR: 74 bpm BP: 140 / 51 mmHg Heart Rhythm: Sinus Rhythm Technical Quality: Fair Exam Date: 06/14/2023 10:40 AM Exam Location: Echo Lab Patient Status: Inpatient Admit Date: 06/12/2023 Staff Ordering Physician: Macarena Payne DO Search Lead: Ramona Webb RDCS Attending Provider: Berto Carnes MD Referring Physician: Elmer ROPER; Exam Type: CA echo doppler color flow Study Info Indications - sob Complete two-dimensional, color flow and Doppler transthoracic echocardiogram is performed. Summary 1. Complete two-dimensional, color flow and Doppler transthoracic echocardiogram is performed. 2. Left ventricular chamber dimension is normal. 3. Left ventricular systolic function is normal, estimated at 60-65%. 4. There is mild concentric increased left ventricular wall thickness. 5. The left ventricular diastolic function is grade I diastolic dysfunction. 6. E/e' 7 is not elevated. 7. The aortic valve is not well visualized. 8. There is moderate aortic valve sclerosis. 9. No pulmonary hypertension, estimated pulmonary arterial systolic pressure is 38 mmHg. 10. Dilated inferior vena cava with <50% collapse upon inspiration consistent with significantly elevated right atrial pressure, 15 mmHg. Left Ventricle E/e' 7 is not elevated. Left ventricular chamber dimension is normal. Left ventricular systolic function is normal, estimated at 60-65%. There is mild concentric increased left ventricular wall thickness. The left ventricular diastolic function is grade I diastolic dysfunction. Right Ventricle Right ventricular chamber dimension is normal. Right ventricular systolic function is normal. Left Atria Left atrial chamber dimension is normal. Right Atria Right atrial chamber dimension is normal. Aortic Valve The aortic valve is not well visualized. There is moderate aortic valve sclerosis. There is no aortic valve stenosis. There is no aortic valve regurgitation. Pulmonic Valve There is no pulmonic regurgitation. Mitral Valve There is no mitral valve stenosis. There is no mitral valve regurgitation. Tricuspid Valve There is no tricuspid valve regurgitation. No pulmonary hypertension, estimated pulmonary arterial systolic pressure is 38 mmHg. Pericardium/Pleural There is no pericardial effusion. Inferior Vena Cava Dilated inferior vena cava with <50% collapse upon inspiration consistent with significantly elevated right atrial pressure, 15 mmHg. Aorta The aortic root size at the sinus of Valsalva is normal. Left Ventricular Outflow Tract Name Value Normal LVOT 2D LVOT Diameter 2.1 cm LVOT Doppler LVOT Peak Gradient 5 mmHg LVOT Mean Gradient 2 mmHg LVOT VTI 19 cm LVOT VTI/AV VTI Ratio 0.6 LVOT Stroke Volume 66 ml LVOT CO 5.5 l/min LVOT CI 2.9 l/min/m2 Pulmonic Valve
[2023-06-14] MEDS: IPRATROPIUM BR 0.02% INH SOLN 0.5 MG/2.5 ML VIAL INHALATION ×7 (00:10→23:47)
[2023-06-14] MEDS: ALBUTEROL SULFATE NEB 2.5 MG/3 ML INH INHALATION ×7 (00:10→23:47)
[2023-06-14] MEDS: cefTRIAXone 2 GM/NS 100 ML 2 GM/100 ML BAG IVPB (00:20)
[2023-06-14] MEDS: methylPREDNISolone SOD SUCC 125 MG VIAL 60 MG IV PUSH ×4 (00:20→18:04)
[2023-06-14] MEDS: AZITHROMYCIN 500 MG/NS 250 ML 500 MG/250 ML BAG 250 MG IVPB (01:34)
[2023-06-14] MEDS: LEVOTHYROXINE SODIUM 112 MCG TABLET BY MOUTH (06:21)
[2023-06-14 07:05] LABS: Hematocrit 34.6 % (42.0-52.0); Hemoglobin 11.2 g/dL (14.0-18.0); Mean Corpuscular HGB Conc 32.4 g/dl (32-36); Mean Corpuscular Hemoglobin 29.9 pg (26-34); Mean Corpuscular Volume 92.3 fl (80-100); Mean Platelet Volume 10.1 fl (7.4-10.4); Platelet Count Result 396 k/mm3 (150-375); Red Blood Count 3.75 M/mm3 (4.6-6.20); Red Cell Distribution Width 14.9 % (11.5-14.5); White Blood Count 9.1 K/mm3 (4.5-10.0)
[2023-06-14 07:16] LABS: Alanine Aminotransferase 43 U/L (6-50); Albumin Level 3.7 g/dL (3.5-5.1); Alkaline Phosphatase 197 U/L (38-126); Anion Gap 10 mmol/L (8-16); Aspartate Amino Transferase 37 U/L (17-59); Bilirubin,Total 0.5 mg/dL (0.2-1.3); Blood Urea Nitrogen 19 mg/dL (9-20); Calcium 8.6 mg/dL (8.4-10.2); Carbon Dioxide 30 mmol/L (22-30); Chloride 101 mmol/L (98-107); Estimated CRCL calculation 87 ml/min; Estimated Glomerular Filt Rate > 60; Glucose 154 mg/dL (65-110); Potassium 2.9 mmol/L (3.4-5.0); Sodium 141 mmol/L (137-145)
[2023-06-14 08:00] LABS: Band Neutrophils Percent 15 % (0-6); Lymphocytes Absolute Manual 0.45 K/mm3 (1.1-4.5); Lymphocytes Percent Manual 5 % (18-44); Monocytes Absolute Manual 0.63 K/mm3 (0.1-0.90); Monocytes Percent Manual 7 % (3-9); Neutrophils Percent Manual 73 % (46-73); Total Cells Counted 100
[2023-06-14 08:01] LABS: Ovalocytes 1+ (NORMAL); Platelet Estimate Increased (Adequate); Poikilocytosis 1+ (NORMAL); Schistocytes None Seen (NORMAL)
[2023-06-14] MEDS: FINASTERIDE 5 MG TABLET PO (09:06)
[2023-06-14] MEDS: predniSONE 40 MG, predniSONE 10 MG 50 MG PO (09:07)
[2023-06-14] MEDS: CLOPIDOGREL BISULFATE 75 MG TABLET PO (09:07)
[2023-06-14] MEDS: PENTOXIFYLLINE 400 MG TABCR PO ×2 (09:07→17:25)
[2023-06-14] MEDS: cloNIDine HCL 0.1 MG TABLET PO ×2 (09:07→17:25)
[2023-06-14] MEDS: TAMSULOSIN HCL 0.4 MG CAPSULE PO (09:07)
[2023-06-14] MEDS: ASPIRIN 325 MG TABLET PO (09:07)
[2023-06-14] MEDS: ENOXAPARIN 40 MG/0.4 ML SYRINGE SUB-Q (09:25)
[2023-06-14] MEDS: CHLORHEXIDINE GLUCONATE 0.12% ORAL RINSE 473 ML BTL (*BKC) 15 ML SWISH/SPIT ×2 (10:56→17:25)
--- NOTE | 2023-06-14 13:06 | PM.IMPN ---
Progress Note: A&P Assessment and Plan (1) Multifocal pneumonia: Code(s): J18.9 - Pneumonia, unspecified organism Status: Acute Assessment and Plan: Admit to regular medical floor Patient started on ceftriaxone and Zithromax much improved, still requiring O2, plan to get home o2 eval, check d dimer (2) Acute hypoxic respiratory failure: Code(s): J96.01 - Acute respiratory failure with hypoxia Status: Acute Assessment and Plan: On supplemental oxygen by nasal cannula see above (3) Asthma exacerbation in COPD: Code(s): J44.1 - Chronic obstructive pulmonary disease with (acute) exacerbation; J45.901 - Unspecified asthma with (acute) exacerbation Status: Acute Assessment and Plan: Schedule breathing treatments (4) Lung cancer: Code(s): C34.90 - Malignant neoplasm of unspecified part of unspecified bronchus or lung Status: Acute Assessment and Plan: Follow-up in outpatient setting (5) Polycythemia: Code(s): D75.1 - Secondary polycythemia Status: Acute Assessment and Plan: Continue to monitor (6) Hypertension: Code(s): I10 - Essential (primary) hypertension Status: Acute Assessment and Plan: Resume home meds blood pressure reviewed 06/14 (7) BPH (benign prostatic hyperplasia): Code(s): N40.0 - Benign prostatic hyperplasia without lower urinary tract symptoms Status: Acute Assessment and Plan: Resume home meds Plan DVT prophylaxis with Lovenox GI prophylaxis not indicated Code status full code, DNI Subjective Date/time seen: 06/14/23 13:06 Interval history: 78-year-old male with history of hypothyroidism, prostate cancer, COPD, among other comorbidities is presenting with shortness of breath and currently being treated for pneumonia. No overnight events noted. No chest pain. No nausea, vomiting or diarrhea. No fevers or chills. Feels much better than yesterday, still requiring oxygen. Review of Systems Review of Systems: 12 point review of systems was assessed and was negative except as noted in the HPI Exam Narrative: General: No acute distress, alert and oriented per baseline HEENT: Atraumatic, normocephalic, mucous membranes moist CV: Regular rate and rhythm, S1, S2 Lungs: Coarse breath sounds throughout, some expiratory wheezes, diminished at bases Abdomen: Soft, nontender, nondistended Extremities: Normal to inspection Skin: No rashes noted, no lesions or wounds seen Psych: Euthymic, normal affect Objective Data Vital Signs Vital Signs: Vital Signs - 24 hr 06/13/23 14:00 06/13/23 16:33 06/13/23 16:33 Temperature Pulse Rate 106 H 76 Respiratory Rate 20 Blood Pressure Pulse Oximetry 96 Oxygen Delivery Nasal Cannula Oxygen Flow Rate 1 Fraction of Inspired Oxygen 06/13/23 16:49 06/13/23 16:00 06/13/23 16:00 Temperature 97.6 F Pulse Rate 90 77 Respiratory Rate 20 16 Blood Pressure 154/65 H Pulse Oximetry 96 97 Oxygen Delivery Nasal Cannula Oxygen Flow Rate 1 Fraction of Inspired Oxygen 06/13/23 17:45 06/13/23 19:37 06/13/23 19:41 Temperature Pulse Rate 100 Respiratory Rate 20 Blood Pressure Pulse Oximetry 87 L 88 L Oxygen Delivery Room Air Nasal Cannula Oxygen Flow Rate 3 Fraction of Inspired Oxygen 32 06/13/23 19:52 06/13/23 22:00 06/14/23 00:11 Temperature 96.2 F L Pulse Rate 91 87 75 Respiratory Rate 19 18 19 Blood Pressure 140/51 L Pulse Oximetry 93 Oxygen Delivery Oxygen Flow Rate Fraction of Inspired Oxygen 06/14/23 00:20 06/14/23 04:26 06/14/23 04:34 Temperature Pulse Rate 74 75 74 Respiratory Rate 19 19 19 Blood Pressure Pulse Oximetry Oxygen Delivery Oxygen Flow Rate Fraction of Inspired Oxygen 06/14/23 06:00 06/14/23 07:40 Temperature 96.1 F L Pulse Rate 82 Respiratory R
[2023-06-14 14:30] LABS: D Dimer 0.64 ug/mL (<0.48)
[2023-06-15] VITALS (12 sets, daily range): BP systolic 142–145; BP diastolic 57–65; PULSE 72–107; RESP 14–20; TEMP 35.8–35.9; O2SAT 87–94
[2023-06-15] MEDS: cefTRIAXone 2 GM/NS 100 ML 2 GM/100 ML BAG IVPB (00:12)
[2023-06-15] MEDS: methylPREDNISolone SOD SUCC 125 MG VIAL 60 MG IV PUSH ×3 (00:14→11:04)
[2023-06-15] MEDS: AZITHROMYCIN 500 MG/NS 250 ML 500 MG/250 ML BAG 250 MG IVPB (00:52)
[2023-06-15] MEDS: ALBUTEROL SULFATE NEB 2.5 MG/3 ML INH INHALATION ×3 (04:54→11:25)
[2023-06-15] MEDS: IPRATROPIUM BR 0.02% INH SOLN 0.5 MG/2.5 ML VIAL INHALATION ×3 (04:54→11:25)
[2023-06-15 07:04] LABS: Basophils Percent Auto 0.3 % (0.2-1.2); Hematocrit 39.8 % (42.0-52.0); Hemoglobin 12.4 g/dL (14.0-18.0); Immature Granulocyte Absolute 0.61 K/mm3 (0.00-0.031); Immature Granulocyte Percent A 4.4 % (0-0.5); Lymphocytes Absolute Auto 0.27 K/mm3 (0.9-3.2); Lymphocytes Percent Auto 1.9 % (18.3-44.2); Mean Corpuscular HGB Conc 31.2 g/dl (32-36); Mean Corpuscular Hemoglobin 29.4 pg (26-34); Mean Corpuscular Volume 94.3 fl (80-100); Mean Platelet Volume 9.9 fl (7.4-10.4); Monocytes Absolute Auto 0.6 K/mm3 (0.1-0.6); Neutrophils Absolute Auto 12.4 K/mm3 (1.3-6.7); Neutrophils Percent Auto 89.4 % (45.5-73.1); Platelet Count Result 492 k/mm3 (150-375); Red Blood Count 4.22 M/mm3 (4.6-6.20); Red Cell Distribution Width 14.8 % (11.5-14.5); White Blood Count 13.9 K/mm3 (4.5-10.0)
[2023-06-15 07:10] LABS: Alanine Aminotransferase 50 U/L (6-50); Albumin Level 3.8 g/dL (3.5-5.1); Alkaline Phosphatase 223 U/L (38-126); Anion Gap 10 mmol/L (8-16); Aspartate Amino Transferase 42 U/L (17-59); Bilirubin,Total 0.4 mg/dL (0.2-1.3); Blood Urea Nitrogen 21 mg/dL (9-20); Calcium 8.9 mg/dL (8.4-10.2); Carbon Dioxide 31 mmol/L (22-30); Chloride 98 mmol/L (98-107); Estimated CRCL calculation 92 ml/min; Estimated Glomerular Filt Rate > 60; Glucose 143 mg/dL (65-110); Potassium 2.9 mmol/L (3.4-5.0); Sodium 139 mmol/L (137-145)
[2023-06-15] MEDS: FINASTERIDE 5 MG TABLET PO (08:09)
[2023-06-15] MEDS: TAMSULOSIN HCL 0.4 MG CAPSULE PO (08:09)
[2023-06-15] MEDS: cloNIDine HCL 0.1 MG TABLET PO (08:09)
[2023-06-15] MEDS: ENOXAPARIN 40 MG/0.4 ML SYRINGE SUB-Q (08:09)
[2023-06-15] MEDS: CLOPIDOGREL BISULFATE 75 MG TABLET PO (08:09)
[2023-06-15] MEDS: PENTOXIFYLLINE 400 MG TABCR PO (08:14)
[2023-06-15] MEDS: predniSONE 40 MG, predniSONE 10 MG 50 MG PO (08:14)
[2023-06-15] MEDS: CHLORHEXIDINE GLUCONATE 0.12% ORAL RINSE 473 ML BTL (*BKC) 15 ML SWISH/SPIT (08:14)
[2023-06-15] MEDS: ASPIRIN 325 MG TABLET PO (08:14)
--- NOTE | 2023-06-15 11:26 | PM.DS ---
DS: Admitting Diagnosis Discharge Date 06/15/23 Admitting Diagnosis sob DS: Discharge Diagnosis Discharge Diagnosis (1) Multifocal pneumonia: Code(s): J18.9 - Pneumonia, unspecified organism Status: Acute Assessment and Plan: Admit to regular medical floor Patient started on ceftriaxone and Zithromax much improved, still requiring O2, plan to get home o2 eval, check d dimer (2) Acute hypoxic respiratory failure: Code(s): J96.01 - Acute respiratory failure with hypoxia Status: Acute Assessment and Plan: On supplemental oxygen by nasal cannula see above (3) Asthma exacerbation in COPD: Code(s): J44.1 - Chronic obstructive pulmonary disease with (acute) exacerbation; J45.901 - Unspecified asthma with (acute) exacerbation Status: Acute Assessment and Plan: Schedule breathing treatments (4) Lung cancer: Code(s): C34.90 - Malignant neoplasm of unspecified part of unspecified bronchus or lung Status: Acute Assessment and Plan: Follow-up in outpatient setting (5) Polycythemia: Code(s): D75.1 - Secondary polycythemia Status: Acute Assessment and Plan: Continue to monitor (6) Hypertension: Code(s): I10 - Essential (primary) hypertension Status: Acute Assessment and Plan: Resume home meds blood pressure reviewed 06/14 (7) BPH (benign prostatic hyperplasia): Code(s): N40.0 - Benign prostatic hyperplasia without lower urinary tract symptoms Status: Acute Assessment and Plan: Resume home meds Plan DVT prophylaxis with Lovenox GI prophylaxis not indicated Code status full code, DNI DS: Summary Hospital Course Hospital Course: 78-year-old male with history of hypothyroidism, prostate cancer, COPD, among other comorbidities is presenting with shortness of breath and currently being treated for pneumonia. Patient was initiated antibiotics, symptoms improved significantly. He was also given increased doses of steroids and nebulizer treatments. All symptoms improved. He was unable to be completely weaned off of the oxygen, therefore, this was arranged for him at home. He was discharged in stable condition with close outpatient follow-up. Please see above and med rec for details. Time Spent with Patient Time attestation: Total time spent providing and/or coordinating discharge services: Exam Narrative: General: No acute distress, alert and oriented per baseline HEENT: Atraumatic, normocephalic, mucous membranes moist CV: Regular rate and rhythm, S1, S2 Lungs: Coarse breath sounds throughout, some expiratory wheezes, diminished at bases Abdomen: Soft, nontender, nondistended Extremities: Normal to inspection Skin: No rashes noted, no lesions or wounds seen Psych: Euthymic, normal affect DS: Data Data Completed and Pending Labs on day of discharge: Labs from last 24 hours 06/15/23 06/14/23 06:43 13:24 WBC 13.9 H RBC 4.22 L Hgb 12.4 L Hct 39.8 L MCV 94.3 MCH 29.4 MCHC 31.2 L RDW 14.8 H Plt Count 492 H MPV 9.9 Immature Gran % (Auto) 4.4 H Neut % (Auto) 89.4 H Lymph % (Auto) 1.9 L [place] % (Auto) 4.0 Eos % (Auto) 0.0 Baso % (Auto) 0.3 Lymph # (Auto) 0.27 L [place] # (Auto) 0.6 Eos # (Auto) 0.0 Baso # (Auto) 0.0 Abs Immat Gran (auto) 0.61 H Absolute Neuts (auto) 12.4 H Absolute Nucleated RBC 0.0 Nucleated RBC % 0.0 D-Dimer 0.64 H Sodium 139 Potassium 2.9 L Chloride 98 Carbon Dioxide 31 H Anion Gap 10 BUN 21 H Creatinine 0.60 L Estim Creat Clear Calc 92 Estimated GFR > 60 Glucose 143 H Calcium 8.9 Total Bilirubin 0.4 AST 42 ALT 50 Alkaline Phosphatase 223 H Total Protein 7.0 Albumin 3.8 Discharge Plan Discharge Attending physician on discharge: Macarena Payne Discharging Clinician: Macarena Payne Patient Dispo
--- NOTE | 2023-06-15 13:39 | HOMEO2EVAL ---
Evaluation was performed at [facility] Home Oxygen Evaluation RC: Home Oxygen (O2) Evaluation Start: 06/15/23 11:24 Freq: ONCE Status: Active Protocol: RPE Activity Type Activity Date Activity User E-sign Co-sign Detail Recorded Client Recorded Date Recorded By Document 06/15/23 13:25 CLC [email or web address] 06/15/23 13:39 CLC Document 06/15/23 13:26 CLC [email or web address] 06/15/23 13:39 CLC Document 06/15/23 13:28 CLC [email or web address] 06/15/23 13:39 CLC 06/15/23 06/15/23 06/15/23 13:25 13:26 13:28 Home O2 Evaluation [Oxygen] -Test Phase Resting Resting Exercise -Oxygen Delivery Room Air Nasal Cannula Nasal Cannula -Oxygen Flow Rate (L/min) 2 2 [Pulse Oximetry] -Pulse Oximetry (90-100 %) 87 L 92 90 [Pulse Rate] -Pulse Rate (60-100 beats/min) 107 H 98 107 H [Evaluation] -Activity Tolerance Good [Exercise] -Ambulation Distance (feet) 250 -Ambulation Distance (meters) 76.19 [Charges] -Treatment Charges O2 Evaluation - Inpatient
--- NOTE | 2023-06-15 14:44 | PCRCNOTE ---
Home oxygen evaluation complete. Patient requires 2 liters per minute continuously per nasal cannula.
--- NOTE | 2023-06-15 18:55 | PC.NURSE ---
Pt discharged home with his . Pt needs to be on 2L O2 at all times. Pt compliant with care. Pt participated and contributed in plan of care. Pt denies any pain. Pt was set up with home O2. Pt IV's were removed, tips intact, and pt tolerated well. Pt was monitored for any changes in status.
== END 2023-06-15 16:38 | disposition home or self-care (01) | DRG 194 ==
LOC: ANH3MEDSUR 06-15 11:27 → ANHIMU 06-18 06:16 → ANH3MEDSUR 06-18 06:16
PROVIDERS: Admitting Provider Internal Medicine; PCP Internal Medicine; Visit Provider Student in an Organized Health Care Education/Training Program
DX: J18.9 Pneumonia, unspecified organism (principal); C34.90 Malignant neoplasm of unspecified part of unspecified bronchus or lung; D75.1 Secondary polycythemia; E03.9 Hypothyroidism, unspecified; I10 Essential (primary) hypertension; J43.9 Emphysema, unspecified; N40.0 Benign prostatic hyperplasia without lower urinary tract symptoms; Z87.891 Personal history of nicotine dependence; Z85.46 Personal history of malignant neoplasm of prostate; Z79.02 Long term (current) use of antithrombotics/antiplatelets; Z79.82 Long term (current) use of aspirin
CPT/HCPCS: 36415; 80048; 80053; 83735; 84100; 85025; 85380; 93306; 94618; 94640; A4248; A9270; J0456; J0696; J1650; J1940; J2930; J7512

== ENCOUNTER 2023-06-18 16:42 | Outpatient (CLI) | payer MEDICARE, SELFPAY ==
--- NOTE | ~2023-06-18 | XR_ITS ---
XR chest 2V 06/18/2023 17:02 Indication: Follow-up pneumonia Procedure: 2 view chest Comparison: Comparison to multiple prior studies sequentially, with oldest reviewed study dated 10/2018. Findings: Significant improvement of bibasilar airspace disease, likely resolving edema or pneumonia. No pleural effusion or pneumothorax. Heart size normal. There is atherosclerosis. Chronic elevation of the left diaphragm. Impression: 1: Significant improvement of bibasilar airspace disease which may represent resolving edema or pneum onia. Reviewed, dictated and finalized at location L. F MAKER Impression: 1: Significant improvement of bibasilar airspace disease which may represent re solving edema or pneumonia.
[2023-06-18 16:57] LABS: Hemoglobin 13.5 g/dL (12.4-15.3); Immature Platelet Fraction Pct 3.5 % (1.0-7.0); Mean Corpuscular HGB Conc 32.1 g/dL (32.0-36.0); Mean Corpuscular Hemoglobin 29.9 pg (27.0-31.0); Mean Corpuscular Volume 92.9 fL (78.0-102.0); Mean Platelet Volume 9.7 fl (8.7-11.0); Platelet Count Result 559 K/mm3 (150-420); Red Blood Count 4.52 M/mm3 (4.70-6.10); Red Cell Distribution Width 14.9 % (11.6-14.4); White Blood Count 18.2 K/mm3 (4.8-10.8)
[2023-06-18 17:33] LABS: Alanine Aminotransferase 34 U/L (16-63); Albumin Level 2.7 g/dL (3.4-5.0); Alkaline Phosphatase 169 U/L (46-116); Anion Gap 4 mmol/L (8-16); Aspartate Amino Transferase 15 U/L (15-37); Bilirubin,Total 0.4 mg/dL (0.00-1.00); Blood Urea Nitrogen 20 mg/dL (7-18); Calcium 8.9 mg/dL (8.5-10.1); Carbon Dioxide 37 mmol/L (21-32); Chloride 98 mmol/L (98-108); Estimated Glomerular Filt Rate > 60; Glucose 102 mg/dL (70-99); NT Pro B Type Natriuretic Pept 2026 pg/mL (0-450); Osmolality Calculated 290 mOsm/kg (285-295); Potassium 3.9 mmol/L (3.5-5.1); Sodium 139 mmol/L (136-145)
[2023-06-18 17:46] LABS: Band Neutrophils Percent 2 % (0-6); Basophils Percent Manual 0 % (0-1); Eosinophils Percent Manual 0 % (1-6); Lymphocytes Absolute Manual 0.91 K/mm3 (1.1-4.5); Lymphocytes Percent Manual 5 % (18-44); Metamyelocytes Percent 2 %; Monocytes Absolute Manual 0.54 K/mm3 (0.1-0.90); Monocytes Percent Manual 3 % (3-9); Myelocytes Percent 2 %; Neutrophils Absolute Manual 16.01 K/mm3 (1.3-6.7); Neutrophils Percent Manual 86 % (46-73); Total Cells Counted 100
[2023-06-18 17:47] LABS: Platelet Estimate Increased (Adequate)
== END 2023-06-18 16:43 | disposition home or self-care (01) ==
LOC: CHSLAB 16:43
PROVIDERS: PCP Internal Medicine; Visit Provider Internal Medicine
DX: R06.00 Dyspnea, unspecified (principal); R91.8 Other nonspecific abnormal finding of lung field
CPT/HCPCS: 36415; 71046; 80053; 83880; 85025; 85055

== ENCOUNTER 2023-06-27 08:24 | Outpatient (CLI) | payer MEDICARE, SELFPAY ==
--- NOTE | ~2023-06-27 | XR_ITS ---
EXAMINATION: XR chest 2V 06/27/2023 08:45 INDICATION: CHF. Pneumonia. PROCEDURE: 2 view chest COMPARISON: Comparison to multiple prior studies sequentially, with oldest reviewed study dated 03/2021. FINDINGS: The lungs are clear. The cardiomediastinal silhouette is within normal limits. There are no pleural effusions. There is no pneumothorax suspected. There are small calcified granulomas in t he lung bases. IMPRESSION: 1: NO ACUTE CARDIOPULMONARY DISEASE. Reviewed, dictated and finalized at location L. SH FILER
[2023-06-27 09:20] LABS: Anion Gap 7 mmol/L (8-16); Blood Urea Nitrogen 9 mg/dL (7-18); Calcium 8.8 mg/dL (8.5-10.1); Carbon Dioxide 32 mmol/L (21-32); Chloride 97 mmol/L (98-108); Estimated Glomerular Filt Rate > 60; Glucose 115 mg/dL (70-99); NT Pro B Type Natriuretic Pept 499 pg/mL (0-450); Osmolality Calculated 281 mOsm/kg (285-295); Potassium 3.5 mmol/L (3.5-5.1); Sodium 136 mmol/L (136-145)
== END 2023-06-27 08:25 | disposition home or self-care (01) ==
LOC: CHSLAB 08:27
PROVIDERS: PCP Internal Medicine; Visit Provider Internal Medicine
DX: I50.9 Heart failure, unspecified (principal)
CPT/HCPCS: 36415; 71046; 80048; 83880

== ENCOUNTER 2023-07-08 08:17 | Outpatient (CLI) | payer MEDICARE, SELFPAY ==
--- NOTE | ~2023-07-08 | CT_ITS ---
CT of the Abdomen and Pelvis: Indication: Weight loss Technique: 2.5 mm axial scans were obtained through the abdomen and pelvis following intravenous adm inistration of 100 cc of Omnipaque 350. Dose reduction technique was used on this scan by utilizing a utomated exposure control and iterative reconstruction technique. The dose-length product (DLP) was 3 60.25 mGy-cm. COMPARISON: 05/31/2022 Findings: Scans through the lung bases demonstrate probable bibasilar chronic interstitial change, p ossible tree-in-bud opacities in the right lower lobe.. Stable hypodense hepatic lesion in the right hepatic lobe with irregular peripheral contrast, suggest alisia of hemangioma. Stable splenomegaly. The pancreas, gallbladder, adrenals and kidneys are within no rmal limits. There are atherosclerotic calcifications of the aorta. No lymphadenopathy. No bowel obstruction or bowel wall thickening. There is no evidence to suggest acute appendicitis. Images through the pelvis were performed. Urinary bladder unremarkable. No pelvic mass seen. No ascit es. Impression: Probable tree-in-bud opacities right lower lobe, suggestive of small airways infectious process. Asso ciated chronic interstitial change. Stable splenomegaly. Stable hepatic hemangioma. Reviewed, dictated and finalized at location . [employer] Impression: Probable tree-in-bud opacities right lower lobe, suggestive of small airways in fectious process. Associated chronic interstitial change. Stable splenomegaly. Stable hepatic hemangioma.
--- NOTE | 2023-07-08 08:23 | ECHO_ITS ---
Patient Info Name: Rick Marie Age: 78 years : 1945 Gender: Male Ht: 72 in Wt: 195 lbs BSA: 2.13 m2 HR: 76 bpm BP: 112 / 52 mmHg Heart Rhythm: Sinus Rhythm Technical Quality: Good Exam Date: 07/08/2023 10:42 AM Exam Location: [facility] [place] Patient Status: Outpatient Admit Date: 07/08/2023 Staff Ordering Physician: Blake Valverde MD Museum Assistant: Joseph Saucedo RDCS Attending Provider: Blake Valverde MD Referring Physician: Abram DELGADO; Exam Type: CA echo doppler color flow Study Info Indications - chf Complete two-dimensional, color flow and Doppler transthoracic echocardiogram is performed. Summary 1. Complete two-dimensional, color flow and Doppler transthoracic echocardiogram is performed. 2. Left ventricular chamber dimension is normal. 3. Left ventricular systolic function is normal, estimated at 60-65%. 4. There is moderate concentric increased left ventricular wall thickness. 5. The left ventricular diastolic function is grade I diastolic dysfunction. 6. E/e' 11 is mildly elevated. 7. Left atrial chamber dimension is mildly enlarged. 8. There is moderate aortic valve sclerosis. 9. There is mild aortic valve regurgitation. 10. The mitral valve has moderately calcified annulus. 11. There is mild tricuspid valve regurgitation. 12. No pulmonary hypertension, estimated pulmonary arterial systolic pressure is 22 mmHg. Left Ventricle E/e' 11 is mildly elevated. Left ventricular chamber dimension is normal. Left ventricular systolic function is normal, estimated at 60-65%. There is moderate concentric increased left ventricular wall thickness. The left ventricular diastolic function is grade I diastolic dysfunction. Right Ventricle Right ventricular systolic function is normal and with normal TAPSE 3.0 cm. Right ventricular chamber dimension is normal. Left Atria Left atrial chamber dimension is mildly enlarged. Right Atria Right atrial chamber dimension is normal. Aortic Valve The aortic valve is trileaflet. There is moderate aortic valve sclerosis. There is no aortic valve stenosis. There is mild aortic valve regurgitation. Pulmonic Valve There is no pulmonic regurgitation. Mitral Valve The mitral valve has moderately calcified annulus. There is no mitral valve stenosis. There is no mitral valve regurgitation. Tricuspid Valve There is mild tricuspid valve regurgitation. No pulmonary hypertension, estimated pulmonary arterial systolic pressure is 22 mmHg. Pericardium/Pleural There is no pericardial effusion. Inferior Vena Cava Normal inferior vena cava with >50% collapse upon inspiration consistent with normal right atrial pressure, 5 mmHg. Aorta The aortic root size at the sinus of Valsalva is normal. Left Ventricular Outflow Tract Name Value Normal LVOT 2D LVOT Diameter 2.0 cm LVOT Doppler LVOT Peak Velocity 81 cm/s LVOT Peak Gradient 1 mmHg LVOT Mean Gradient 1 mmHg LVOT VTI 23 cm LVOT VTI/AV VTI Ratio 0.7 LVOT Stroke Volume 74 ml Pulmonic Valve
== END 2023-07-08 08:18 | disposition home or self-care (01) ==
LOC: CHSIMG 08:18
PROVIDERS: PCP Internal Medicine; Visit Provider Internal Medicine
DX: R63.0 Anorexia (principal); R63.4 Abnormal weight loss; I50.9 Heart failure, unspecified; R91.8 Other nonspecific abnormal finding of lung field; R16.1 Splenomegaly, not elsewhere classified; R16.0 Hepatomegaly, not elsewhere classified; I08.2 Rheumatic disorders of both aortic and tricuspid valves
CPT/HCPCS: 74177; 93306; Q9967

== ENCOUNTER 2023-07-12 15:31 | Outpatient (CLI) | payer MEDICARE, SELFPAY ==
[2023-07-12 16:06] LABS: Basophils Absolute Auto 0.02 K/mm3 (0.00-0.10); Basophils Percent Auto 0.2 % (0.0-1.0); Eosinophils Absolute Auto 0.08 K/mm3 (0.02-0.50); Eosinophils Percent Auto 0.9 % (1.0-6.0); Hematocrit 32.3 % (37.0-46.0); Hemoglobin 10.4 g/dL (12.4-15.3); Immature Granulocyte Absolute 0.14 K/mm3 (0.00-0.00); Immature Granulocyte Percent A 1.6 % (0.0-0.0); Lymphocytes Absolute Auto 0.34 K/mm3 (1.10-4.50); Mean Corpuscular HGB Conc 32.2 g/dL (32.0-36.0); Mean Corpuscular Volume 93.1 fL (78.0-102.0); Mean Platelet Volume 9.7 fl (8.7-11.0); Monocytes Percent Auto 9.4 % (2.0-11.0); Neutrophils Absolute Auto 7.1 K/mm3 (1.7-7.2); Neutrophils Percent Auto 83.9 % (50.0-70.0); Platelet Count Result 406 K/mm3 (150-420); Red Blood Count 3.47 M/mm3 (4.70-6.10); Red Cell Distribution Width 16.5 % (11.6-14.4); White Blood Count 8.5 K/mm3 (4.8-10.8)
[2023-07-12 16:47] LABS: Alanine Aminotransferase 17 U/L (16-63); Albumin Level 3.1 g/dL (3.4-5.0); Alkaline Phosphatase 137 U/L (46-116); Anion Gap 6 mmol/L (8-16); Aspartate Amino Transferase 10 U/L (15-37); Bilirubin,Total 0.3 mg/dL (0.00-1.00); Blood Urea Nitrogen 10 mg/dL (7-18); Carbon Dioxide 32 mmol/L (21-32); Chloride 94 mmol/L (98-108); Estimated Glomerular Filt Rate > 60; Glucose 93 mg/dL (70-99); NT Pro B Type Natriuretic Pept 776 pg/mL (0-450); Osmolality Calculated 273 mOsm/kg (285-295); Sodium 132 mmol/L (136-145); Total Protein 6.3 g/dL (6.4-8.2)
== END 2023-07-12 15:32 | disposition home or self-care (01) ==
LOC: CHSLAB 15:33
PROVIDERS: PCP Internal Medicine; Visit Provider Internal Medicine
DX: D70.9 Neutropenia, unspecified (principal); I50.9 Heart failure, unspecified
CPT/HCPCS: 36415; 80053; 83880; 85025

== ENCOUNTER 2023-08-12 13:18 | Outpatient (CLI) | payer MEDICARE, SELFPAY ==
[2023-08-12 13:29] LABS: Basophils Absolute Auto 0.02 K/mm3 (0.00-0.10); Basophils Percent Auto 0.3 % (0.0-1.0); Eosinophils Absolute Auto 0.08 K/mm3 (0.02-0.50); Eosinophils Percent Auto 1.1 % (1.0-6.0); Hematocrit 34.6 % (37.0-46.0); Hemoglobin 11.4 g/dL (12.4-15.3); Immature Granulocyte Absolute 0.07 K/mm3 (0.00-0.00); Lymphocytes Absolute Auto 0.41 K/mm3 (1.10-4.50); Lymphocytes Percent Auto 5.7 % (18.0-42.0); Mean Corpuscular HGB Conc 32.9 g/dL (32.0-36.0); Mean Corpuscular Hemoglobin 31.4 pg (27.0-31.0); Mean Corpuscular Volume 95.3 fL (78.0-102.0); Mean Platelet Volume 9.3 fl (8.7-11.0); Monocytes Absolute Auto 0.58 K/mm3 (0.10-0.90); Neutrophils Absolute Auto 6.1 K/mm3 (1.7-7.2); Neutrophils Percent Auto 83.9 % (50.0-70.0); Platelet Count Result 415 K/mm3 (150-420); Red Blood Count 3.63 M/mm3 (4.70-6.10); Red Cell Distribution Width 17.1 % (11.6-14.4); White Blood Count 7.2 K/mm3 (4.8-10.8)
[2023-08-12 14:08] LABS: Anion Gap 10 mmol/L (8-16); Blood Urea Nitrogen 10 mg/dL (7-18); Calcium 8.6 mg/dL (8.5-10.1); Carbon Dioxide 30 mmol/L (21-32); Chloride 95 mmol/L (98-108); Estimated Glomerular Filt Rate > 60; Glucose 106 mg/dL (70-99); NT Pro B Type Natriuretic Pept 1300 pg/mL (0-450); Osmolality Calculated 279 mOsm/kg (285-295); Potassium 3.8 mmol/L (3.5-5.1); Sodium 135 mmol/L (136-145)
== END 2023-08-12 13:19 | disposition home or self-care (01) ==
LOC: CHSLAB 13:19
PROVIDERS: PCP Internal Medicine; Visit Provider Internal Medicine
DX: I50.9 Heart failure, unspecified (principal)
CPT/HCPCS: 36415; 80048; 83880; 85025

== ENCOUNTER 2023-10-05 16:39 | Inpatient (IN) | payer MEDICARE, SELFPAY ==
--- NOTE | 2023-10-05 17:00 | ADMGEN ---
This patient, Rick Marie, was admitted to 2nd Floor Room 204-1. Patient/family oriented to hospital policies and general routines including ID bracelet, bed and alarms, visiting hours, pain management, procedures, bathroom and other care routines, personal items, smoking policy, room service/diet, and visiting hours. Information on how to activate the Rapid Response Team has been discussed. Patient/Family are encouraged to report perceived risks to care and to ask questions if they do not understand what they are told or what they should do.
[2023-10-05 17:55] VITALS: BMI 21.5
[2023-10-05 18:13] VITALS: BMI 21.5
[2023-10-05] MEDS: ACETAMINOPHEN 325 MG TABLET 650 MG FEED TUBE (20:25)
[2023-10-05] MEDS: APIXABAN 2.5 MG TABLET 5 MG FEED TUBE (20:26)
[2023-10-05] MEDS: ATORVASTATIN 40 MG TABLET 80 MG FEED TUBE (20:27)
[2023-10-05] MEDS: FINASTERIDE 5 MG TABLET FEED TUBE (20:27)
[2023-10-05 20:43] LABS: Alanine Aminotransferase 62 U/L (16-63); Albumin Level 2.4 g/dL (3.4-5.0); Alkaline Phosphatase 535 U/L (46-116); Anion Gap 6 mmol/L (8-16); Aspartate Amino Transferase 50 U/L (15-37); Bilirubin,Total 0.6 mg/dL (0.00-1.00); Blood Urea Nitrogen 19 mg/dL (7-18); Calcium 8.5 mg/dL (8.5-10.1); Carbon Dioxide 28 mmol/L (21-32); Chloride 98 mmol/L (98-108); Estimated CRCL calculation 98 ml/min; Estimated Glomerular Filt Rate > 60; Glucose 87 mg/dL (70-99); Osmolality Calculated 275 mOsm/kg (285-295); Potassium 4.2 mmol/L (3.5-5.1); Sodium 132 mmol/L (136-145); Total Protein 6.1 g/dL (6.4-8.2)
[2023-10-05] MEDS: ACETAMINOPHEN 500 MG TABLET 1000 MG FEED TUBE (22:32)
[2023-10-05] MEDS: GABAPENTIN 300 MG CAPSULE FEED TUBE (22:33)
[2023-10-06] VITALS: BP 149/55; PULSE 68; RESP 18; TEMP 36; O2SAT 95
[2023-10-06] MEDS: ACETAMINOPHEN 500 MG TABLET 1000 MG FEED TUBE ×3 (05:02→21:10)
[2023-10-06] MEDS: GABAPENTIN 300 MG CAPSULE FEED TUBE ×3 (05:03→21:10)
[2023-10-06 08:00] VITALS: BP 126/49; PULSE 72; RESP 16; TEMP 35.7; O2SAT 94
--- NOTE | 2023-10-06 08:22 | PM.IMHP ---
H&P: HPI History of Present Illness Date/Time: 10/06/23 08:22 Chief Complaint: Swing bed admission for deconditioning and weakness Narrative: This is a 78-year-old man with a history of cancer (lung, tongue, throat status post chemo in 2006 and radiation in 2014), status post left iliofemoral endarterectomy (2016) and 3 stents to right lower extremity (2021), PE, DVT, polycythemia vera on Ruxolitinib, and hypertension who initially presented with osteoradionecrosis of left mandible for elective mandibulectomy, mandible reconstruction, and free flap on 09/09/2023. His hospitalization was complicated by an NSTEMI for which he underwent a TTE on 09/10/2023 and was newly diagnosed with heart failure reduced ejection fraction 30-35% with a centric left ventricular hypertrophy as well as apical and inferior lateral wall motion abnormalities and left ventricle apical thrombus. His heart catheterization was delayed due to recent surgery he underwent left-sided heart catheterization on which showed advanced 3 vessel disease. Given his multiple comorbidities he was deemed to be a poor candidate for CABG and therefore is receiving medical management only. He also developed a right arm hematoma where his flap was harvested from. It required evacuation on 09/19 and placement of a Ge drain. His Ge drain was removed 10/04 prior to discharge. He is being admitted today to [facility] as a swing bed patient for further physical and occupational therapy given prolonged hospitalization resulting in weakness and deconditioning. Prior to surgery he was independent with a cane for ambulation. He started using a cane after he had multiple toes amputated on his right foot. He also will receive daily wound care from nursing regarding his left mandibular surgical incision as well as his bone graft site on his right forearm. Today when I see him he is resting in bed and does not appear in distress. He states that he has some jaw pain and head and neck pain since the surgery. He thinks it is related to sleeping in a hospital bed this last month. This has been controlled with oxycodone and Tylenol. He denies dizziness, chest pain, shortness a breath, abdominal pain, nausea, vomiting, or constipation. He states that he has loose stools daily since starting his tube feed. Yesterday he had 4 loose bowel movements. He has Imodium available. He also reports decreased sensation and pain to his right thumb and right forefinger that has been present since his hematoma evacuation. He also reports multiple toe amputations on bilateral lower extremities. He is generally weak but is motivated to work with therapy. He will be admitted for PT and OT consults and swing bed status for further therapy needs. 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 Smoking packs per day: 3 Smoking cigarettes per day: 60.0 Years smoked: 30 Smoking pack-years: 90.00 Smoking status: Never smoker Tobacco type: cigarettes Alcohol intake: former Drinks per week: 15 Alcohol use details: Was drinking prior to this surgery. Patient says 20 beers a week Substance us
[2023-10-06] MEDS: LOPERAMIDE HCL 2 MG CAPSULE FEED TUBE (09:05)
[2023-10-06 09:06] VITALS: PULSE 72
[2023-10-06] MEDS: APIXABAN 2.5 MG TABLET 5 MG FEED TUBE ×2 (09:06→21:11)
[2023-10-06] MEDS: METOPROLOL TARTRATE 12.5 MG TABLET FEED TUBE ×2 (09:06→21:11)
[2023-10-06] MEDS: CYANOCOBALAMIN 1,000 MCG TABLET 1000 MCG FEED TUBE (09:07)
[2023-10-06] MEDS: CLOPIDOGREL BISULFATE 75 MG TABLET FEED TUBE (09:07)
[2023-10-06] MEDS: SPIRONOLACTONE 25 MG TABLET FEED TUBE (09:07)
[2023-10-06] MEDS: ASPIRIN 81 MG CHEWABLE TABLET FEED TUBE (09:07)
[2023-10-06] MEDS: LOSARTAN POTASSIUM 25 MG TABLET (09:09)
[2023-10-06] MEDS: CHLORHEXIDINE GLUCONATE 0.12% ORAL RINSE 473 ML BTL (*BKC) 15 ML SWISH/SPIT ×2 (09:10→17:19)
[2023-10-06] MEDS: VITAMIN E 400 UNIT CAPSULE 800 UNIT PO (09:10)
[2023-10-06 16:00] VITALS: BP 112/51; PULSE 76; RESP 16; TEMP 36.6; O2SAT 95
--- NOTE | 2023-10-06 18:00 | PC.NURSE ---
Pt given three bolus feedings of [employer] 1.4 (0900,1300,and 1700) with water flushes. He received prosource supplement at 0900 and 1300. Tolerated well.
[2023-10-06 21:11] VITALS: PULSE 70
[2023-10-06] MEDS: ATORVASTATIN 40 MG TABLET 80 MG FEED TUBE (21:11)
[2023-10-06] MEDS: FINASTERIDE 5 MG TABLET FEED TUBE (21:11)
[2023-10-07] VITALS: BP 140/42; PULSE 72; RESP 15; TEMP 36.6; O2SAT 96
[2023-10-07] MEDS: oxyCODONE HCL (*CRX) 5 MG TAB IR FEED TUBE ×2 (04:16→21:14)
[2023-10-07] MEDS: ACETAMINOPHEN 500 MG TABLET 1000 MG FEED TUBE ×3 (06:42→21:16)
[2023-10-07] MEDS: GABAPENTIN 300 MG CAPSULE FEED TUBE ×3 (06:42→21:14)
[2023-10-07] MEDS: LEVOTHYROXINE SODIUM 112 MCG TABLET FEED TUBE (06:42)
[2023-10-07 08:00] VITALS: BP 139/48; PULSE 77; RESP 16; TEMP 35.7; O2SAT 98
[2023-10-07] MEDS: VITAMIN E 400 UNIT CAPSULE 800 UNIT PO (10:05)
[2023-10-07 10:07] VITALS: PULSE 60
[2023-10-07] MEDS: CYANOCOBALAMIN 1,000 MCG TABLET 1000 MCG FEED TUBE (10:07)
[2023-10-07] MEDS: CLOPIDOGREL BISULFATE 75 MG TABLET FEED TUBE (10:07)
[2023-10-07] MEDS: ASPIRIN 81 MG CHEWABLE TABLET FEED TUBE (10:07)
[2023-10-07] MEDS: SPIRONOLACTONE 25 MG TABLET FEED TUBE (10:07)
[2023-10-07] MEDS: METOPROLOL TARTRATE 12.5 MG TABLET FEED TUBE ×2 (10:07→21:13)
[2023-10-07] MEDS: APIXABAN 2.5 MG TABLET 5 MG FEED TUBE ×2 (10:07→21:16)
[2023-10-07] MEDS: CHLORHEXIDINE GLUCONATE 0.12% ORAL RINSE 473 ML BTL (*BKC) 15 ML SWISH/SPIT ×2 (10:08→17:42)
[2023-10-07] MEDS: LANSOPRAZOLE ORAL SUSP 30 MG/10 ML ORAL.SUSP FEED TUBE (10:08)
[2023-10-07] MEDS: SACUBITRIL/VALSARTAN 24-26 MG TABLET 1 TAB XX ×2 (10:10→21:13)
[2023-10-07 16:00] VITALS: BP 118/42; PULSE 72; RESP 16; TEMP 35.9; O2SAT 97
[2023-10-07 21:13] VITALS: PULSE 75
[2023-10-07] MEDS: FINASTERIDE 5 MG TABLET FEED TUBE (21:14)
[2023-10-07] MEDS: ATORVASTATIN 40 MG TABLET 80 MG FEED TUBE (21:16)
[2023-10-08] VITALS: BP 125/54; PULSE 66; RESP 16; TEMP 36.4; O2SAT 96
[2023-10-08] MEDS: OXYMETAZOLINE HCL 0.05% NAS 15 ML BTL (*BKC) 1 SPRAY (00:45)
[2023-10-08 01:09] LABS: Hematocrit 34.4 % (37.0-46.0); Mean Corpuscular Volume 93.7 fL (78.0-102.0); Mean Platelet Volume 9.8 fl (8.7-11.0); Platelet Count Result 408 K/mm3 (150-420); Red Blood Count 3.67 M/mm3 (4.70-6.10); Red Cell Distribution Width 16.6 % (11.6-14.4); White Blood Count 13.9 K/mm3 (4.8-10.8)
[2023-10-08] MEDS: LIDOCAINE HCL 1% LOCAL INJ 10 ML VIAL (01:21)
[2023-10-08 01:22] LABS: INR 1.1; Partial Thromboplastin Time 33.3 SEC (23.90-30.70); Prothrombin Time 11.5 Seconds (9.50-12.10)
[2023-10-08 02:49] LABS: Alanine Aminotransferase 53 U/L (16-63); Albumin Level 2.4 g/dL (3.4-5.0); Alkaline Phosphatase 538 U/L (46-116); Anion Gap 6 mmol/L (8-16); Aspartate Amino Transferase 35 U/L (15-37); Bilirubin,Total 0.4 mg/dL (0.00-1.00); Blood Urea Nitrogen 16 mg/dL (7-18); Calcium 8.3 mg/dL (8.5-10.1); Carbon Dioxide 30 mmol/L (21-32); Chloride 97 mmol/L (98-108); Estimated CRCL calculation 100 ml/min; Estimated Glomerular Filt Rate > 60; Glucose 111 mg/dL (70-99); Osmolality Calculated 278 mOsm/kg (285-295); Potassium 4.5 mmol/L (3.5-5.1); Sodium 133 mmol/L (136-145); Total Protein 6.3 g/dL (6.4-8.2); Troponin I 56.1 ng/L (0.00-60.4)
--- NOTE | 2023-10-08 02:56 | PDCODEBLUE ---
Code Blue Note Code Blue Note Time Arrived at Code Blue: 0100 Initial Rhythm on Arrival: sinus Airway Management: Pt intubated during resuscitation Chest Compressions: Initiated upon arrival Result of Code Blue: Pt Cardiac Rhythm Post Code: Asystole Code Blue Summary: Patient upon arrival already lost around 1 pint of blood. During trying to stop the bleeding he continued to bleed profusly. He lost another pint of blood and the bleeding could not be stopped after using carterization, xyolcaine, gauze suction. He aspirated a lot of blood already before we arrived on scene. Patients heart rate dropped into the 30s and he stopped breathing. Three rounds of atropine were given. Patient passed out and lost his pulse and stopped breathing. CPR was started and went on for around 45 minutes. TOD was 0230.
--- NOTE | 2023-10-08 03:01 | PM.EVENT ---
Event Note Event Note Event Note: I received a call from Veronica, charge nurse at [facility] [place] at 0039 with concerns for some bleeding that was coming from his mouth. Instructed to take afrin soaked gauze and apply pressure. Nursing to call back with vital signs. 0051-Vital signs stable 150/70, heart rate 65, afebrile, sating 91% on room air. Per their report the bleeding a larger volume than initially thought so they are going to call a rapid response. Instructed to obtain CBC, coags, and type/screen. 0100-ED physician to bedside and is trying to find source of bleeding around flap site and attempting to cauterize the area of concern. In the meantime I had contacted [facility] and spoke with Dr Lazaro about concerns. He instructed to continue with our current measures. He states to hold pressure for 20-30 minutes with gauze and if the bleeding is still present then contact him for possible transfer. I will go in to assess patient and assist with bleeding. 0153-Received call back from DANIELLE Martin and patient has gone unresponsive after aspirating a large volume of blood and Dr Colon is intubating patient for airway protection. 0156-I spoke with [facility] transfer line requesting ICU bed given the patient was now intubated. I spoke with Dr Jackson, casting and pasting supervisor who has accepted the patient. Patient will be airlifted to [place]. 0210-I arrived to the floor and the patient had coded. At time of my arrival ROSC had been achieved, heart rate was in the 130's ST on the monitor. Shortly after my arrival the patient lost his pulse again and CPR was continued. Verbal order for CMP, Mg, Trop. Also requesting STAT unit of pRBC for transfusion. 0230-The patient's son Bebeto is present and I discussed the events that have transpired. The initial code began around 0155. Patient is in PEA. Bebeto has given permission to stop ACLS. The patient was pronounced at [address] Colon. Support provided to the family. They declined an autopsy. They have requested [facility] home at [place], [place].
--- NOTE | 2023-10-08 04:00 | P.DN_ITS ---
Discharge Summary Date and Time Date of : 10/08/23 Time of : 02:30 Provider Pronounced By: Dr. Colon Probable Cause of Probable Cause of : cardiac arrest from exsanguination Summary Hospital Course: 78 year old male with a H cancer (lung, tongue, throat status post chemo in 2006 and radiation in 2014), status post left iliofemoral endarterectomy (2016) and 3 stents to right lower extremity (2021), PE, DVT, polycythemia vera on Ruxolitinib, and hypertension who initially presented with osteoradionecrosis of left mandible for elective mandibulectomy, mandible reconstruction, and free flap on 09/09/2023.? His hospitalization was complicated by an NSTEMI for which he underwent a TTE on 09/10/2023 and was newly diagnosed with heart failure reduced ejection fraction 30-35% with a centric left ventricular hypertrophy as well as apical and inferior lateral wall motion abnormalities and left ventricle apical thrombus.? His heart catheterization was delayed due to recent surgery he underwent left-sided heart catheterization on which showed advanced 3 vessel disease.? Given his multiple comorbidities he was deemed to be a poor candidate for CABG and therefore is receiving medical management only.? He also developed a right arm hematoma where his flap was harvested from.? It required evacuation on 09/19 and placement of a [place] drain.? His [place] drain was removed 10/04 prior to discharge. On 10/04 he presented to [facility] for swing bed admission. Up until this evening approximately around 1230, he had been doing well and there were no concerns. His vitals had been stable, he was tolerating his tube feeding, and he had started working with PT/OT. Early this morning around 1230 he started have some bleeding from his mouth. It was described to me as dark red. Measures were taken to stop the bleeding but the bleeding increased significantly and a rapid response was called. Please see event note for further details. The patient ended up needing to be intubated to protect his airway. Shortly after intubation the patient lost a pulse and a code blue was called. ROSC was achieved once after 4 rounds of epinephrine but the patient again went into PEA. He received another amp of epinephrine. The son, Bebeto presented around 0230 and it was decided by family to stop ACLS at that time. Time of was [address] Colon. Additional Data Confirmation of as documented by pronouncing clinician: Palpable Pulses and Breath Sounds Name of Provider Notified: Christen Turpin NP Time Provider Notified: 02:30 Provider Requests Autopsy: No Family Requests Autopsy: No Music Composer Notified: Yes Date [facility] Notified of : 10/08/23 Time [facility] Notified of : 03:22
--- NOTE | 2023-10-08 04:07 | PC.NURSE ---
Addendum entered by Farnaz Ren RN 10/11/23 00:34: Time: 0030- Pt pushed call light. Time: 30- Nurse entered room to find patient lying on side coughing up blood onto the floor. Nurse immediately notified the charge nurse. Time: 32- Vitals obtained. R- 18, SPO2 97%, BP 154/68, T- 97.6, P- 82. Time: 99- Rapid Response called. Time: 106- Blood specimen collected per order. Time: 107- Dr. Colon On floor and in patient room. Time: 109- Suction machine hooked up. MD started suction. Time: 120- Lidocaine applied to gauze. Gauze applied to inside of patients mouth to help control bleeding. Time: 129- Pt went unresponsive. Time: 134- RSI kit pulled. Pulse 74, SPO2 86%. Time: 013- Intubation started. HR 42, SPO2 86%. Time: 014- Pt intubated. Intubation complete. Placement confirmed by auscultation. Even rise and fall of chest noted with assisted respirations. Time: 0147- Atropine 1mg/10ml given per IV. Flushed with 10ml NS. Time: 0149- Atropine 1mg/10ml given per IV. Flushed with 10ml NS. Time: 0153- Atropine 1mg/10ml given per IV. Flushed with 10ml NS. Time: 0155- CPR started. PEA rhythm. Time: 0157- Epinephrine 1mg/10ml given per IV. Flushed with 10ml NS. Time: 0203- Epinephrine 1mg/10ml given per IV. Flushed with 10ml NS. Time: 0207- Epinephrine 1mg/10ml given per IV. Flushed with 10ml NS. Time: 0210- Epinephrine 1mg/10ml given per IV. Flushed with 10ml NS. Time: 210- ROSC achieved. Pt in Sinus Tach with a rate of 130. Time: 211- [employer]TE[employer] Christen arrived on floor. Time: 216- Pt in PEA rhythm again. CPR restarted. Time: 219- Epinephrine 1mg/10ml given per IV. Flushed with 10ml NS. Time: 224- Sodium Bicarbonate 50 mEq/50 ml given per IV. Time: 226- Family arrived on floor. Time: 227- INDUST[employer]AL MAINTENANCE MANAGER Christen met with family. Family gave permission to stop CPR efforts. Time: 229- Patient . Original Note: Time: 0030- Pt pushed call light. Time: 30- Nurse entered room to find patient lying on side coughing up blood onto the floor. Nurse immediately notified the charge nurse. Time: 32- Vitals obtained. R- 18, SPO2 97%, BP 154/68, T- 97.6, P- 82. Time: 99- Rapid Response called. Time: 106- Blood specimen collected per order. Time: 011- Suction machine hooked up. MD started suction. Time: 012- Lidocaine applied to gauze. Gauze applied to inside of patients mouth to help control bleeding. Time: 013- Pt went unresponsive. Time: 013- RSI kit pulled. Pulse 74, SPO2 86%. Time: 013- Intubation started. HR 42, SPO2 86%. Time: 0145- IV started. 18 G to LFA. Time: 014- Pt intubated. Intubation complete. Time: 0147- Atropine 1mg/10ml given per IV. Flushed with 10ml NS. Time: 0149- Atropine 1mg/10ml given per IV. Flushed with 10ml NS. Time: 0153- Atropine 1mg/10ml given per IV. Flushed with 10ml NS. Time: 0155- CPR started. Time: 0157- Epinephrine 1mg/10ml given per IV. Flushed with 10ml NS. Time: 0203- Epinephrine 1mg/10ml given per IV. Flushed with 10ml NS. Time: 0207- Epinephrine 1mg/10ml given per IV. Flushed with 10ml NS. Time: 0210- Epinephrine 1mg/10ml given per IV. Flushed with 10ml NS. Time: 211- PUMA Velásquez arrived on floor. Time: 219- Epinephrine 1mg/10ml given per IV. Flushed with 10ml NS. Time: 221- ROSC achieved. Pt in sinus tach. Time: 224- Sodium Bicarbonate 50 mEq/50 ml given per IV. Time: 226- Family arrived on floor. Time: 229- Patient .
== END 2023-10-08 02:30 | disposition expired | DRG 947 ==
PROVIDERS: Nurse Practitioner Acute Care; Admitting Provider Internal Medicine; PCP Internal Medicine; Visit Provider Internal Medicine
DX: R53.1 Weakness (principal); I21.4 Non-ST elevation (NSTEMI) myocardial infarction; I50.22 Chronic systolic (congestive) heart failure; M96.831 Postprocedural hemorrhage of a musculoskeletal structure following other procedure; Z48.89 Encounter for other specified surgical aftercare; Z48.01 Encounter for change or removal of surgical wound dressing; I46.9 Cardiac arrest, cause unspecified; T17.998A Other foreign object in respiratory tract, part unspecified causing other injury, initial encounter; M27.2 Inflammatory conditions of jaws; I10 Essential (primary) hypertension; I73.9 Peripheral vascular disease, unspecified; J44.9 Chronic obstructive pulmonary disease, unspecified; D45 Polycythemia vera; E03.9 Hypothyroidism, unspecified; N40.0 Benign prostatic hyperplasia without lower urinary tract symptoms; R19.7 Diarrhea, unspecified; Z85.118 Personal history of other malignant neoplasm of bronchus and lung; Z85.810 Personal history of malignant neoplasm of tongue; Z95.820 Peripheral vascular angioplasty status with implants and grafts; Z85.89 Personal history of malignant neoplasm of other organs and systems; Z86.711 Personal history of pulmonary embolism; Z86.718 Personal history of other venous thrombosis and embolism; Z89.421 Acquired absence of other right toe(s); Z87.891 Personal history of nicotine dependence; Z79.02 Long term (current) use of antithrombotics/antiplatelets; Z79.01 Long term (current) use of anticoagulants; Z93.1 Gastrostomy status
CPT/HCPCS: 36415; 80053; 83735; 84484; 85027; 85610; 85730; 86850; 86900; 86901; 97110; 97161; 97165; 97530; 97535; A4248; A9270; J0171; J0461; J7030; J7120